=== PATIENT | male | born 1935 | race Caucasian/White ===

== ENCOUNTER 2018-03-21 10:12 | Day surgery (SDC) | payer MEDICARE, OTHER ==
[~2018-03-21] VITALS: Ht 188 cm; Wt 74.0 kg
[2018-03-21 10:54] VITALS: BP 118/70
[2018-03-21] MEDS ORDERED: LACTATED RINGERS 1,000 ML IV SCH (11:00)
[2018-03-21] MEDS ORDERED: THYROXINE PO (11:03)
[2018-03-21] MEDS ORDERED: D3 (11:03)
[2018-03-21] MEDS ORDERED: PANT20TA3 PO (11:03)
[2018-03-21] MEDS ORDERED: ONE A DAY VITAMIN (11:03)
[2018-03-21] MEDS ORDERED: ASPIRIN (11:03)
[2018-03-21] MEDS ORDERED: MAGNESIUM (11:03)
[2018-03-21] MEDS ORDERED: GABAPENTIN PO (11:03)
[2018-03-21 11:26] LABS: BASOPHILS # (AUTO) 0.01 x10^3/uL (0-0.1); BASOPHILS % (AUTO) 0 % (0-1); EOSINOPHILS # (AUTO) 0.18 x10^3/uL (0-0.4); EOSINOPHILS % (AUTO) 2 % (1-7); LYMPHOCYTES # (AUTO) 1.12 x10^3/uL (1-3.4); LYMPHOCYTES % (AUTO) 10 % (22-44); MD NO; MEAN CORPUSCULAR HEMOGLOBIN 28.1 pg (27.5-34.5); MEAN CORPUSCULAR HGB CONC 32.7 g/dL (33.2-36.2); MEAN CORPUSCULAR VOLUME 85.9 fL (81-97); MONOCYTES # (AUTO) 0.31 x10^3/uL (0.2-0.8); MONOCYTES % (AUTO) 3 % (2-9); NEUTROPHILS # (AUTO) 9.91 x10^3/uL (1.8-6.8); NEUTROPHILS % (AUTO) 86 % (42-75); PLATELET COUNT 414 x10^3/uL (130-400); RED BLOOD COUNT 4.03 x10^6/uL (4.38-5.82)
[2018-03-21] MEDS ORDERED: MEGA RED (11:33)
[2018-03-21] MEDS ORDERED: PROPOFOL 10 MG/ML, 20ML ONE (12:41)
== END 2018-03-21 14:25 | disposition home or self-care (01) ==
LOC: OUT 10:12
DX: Z09 Encounter for follow-up examination after completed treatment for conditions other than malignant neoplasm (principal); D12.2 Benign neoplasm of ascending colon; E11.9 Type 2 diabetes mellitus without complications; Z86.010 Personal history of colon polyps; Z87.891 Personal history of nicotine dependence; Z85.850 Personal history of malignant neoplasm of thyroid; Z98.890 Other specified postprocedural states; Z79.899 Other long term (current) drug therapy; Z85.72 Personal history of non-Hodgkin lymphomas
CPT/HCPCS: 36415; 45385; 85025; 88305; 93005; J2704; J7120

== ENCOUNTER → 2018-04-30 | Outpatient (CLI) | payer MEDICARE, OTHER ==
[~2018-04-30] MED LIST: ASPIRIN; D3; GABAPENTIN PO; MAGNESIUM; MEGA RED; OMNIPAQUE 350 MG/ML, 75ML BOTTLE ONE; ONE A DAY VITAMIN; PANT20TA3 PO; THYROXINE PO
[2018-04-30 17:53] LABS: CREATININE 0.94 mg/dL (0.7-1.3)
== END | disposition home or self-care (01) ==
LOC: RAD 17:12
PROVIDERS: ATTEND Nurse Practitioner
DX: J90 Pleural effusion, not elsewhere classified (principal); R59.0 Localized enlarged lymph nodes; R09.02 Hypoxemia
CPT/HCPCS: 36415; 71260; 82565; Q9967

== ENCOUNTER 2018-05-10 14:01 | Inpatient (IN) | payer MEDICARE, OTHER ==
[~2018-05-10] VITALS: Ht 188 cm; Wt 86.5 kg
[~2018-05-10 14:01] MED LIST changes: -OMNIPAQUE 350 MG/ML, 75ML BOTTLE ONE
[2018-05-10] MEDS ORDERED: ASPIRIN 81 MG TABLET CHEW ONE (14:50)
[2018-05-10 14:52] LABS: MEAN CORPUSCULAR HEMOGLOBIN 27.4 pg (27.5-34.5); MEAN CORPUSCULAR HGB CONC 32.1 g/dL (33.2-36.2); MEAN CORPUSCULAR VOLUME 85.3 fL (81-97); MEAN PLATELET VOLUME 6.7 fL (7.4-10.4); PLATELET COUNT 699 x10^3/uL (130-400); RED BLOOD COUNT 3.64 x10^6/uL (4.38-5.82); RED CELL DISTRIBUTION WIDTH 16.7 % (9.4-14.8)
[2018-05-10] MEDS ORDERED: ASPIRIN 81 MG TABLET CHEW PO ONE (15:00)
[2018-05-10 15:03] LABS: ALANINE AMINOTRANSFERASE 60 U/L (12-78); ALBUMIN 2.1 g/dL (3.4-5.0); ANION GAP 10 mmol/L (5-15); CALCIUM 8.4 mg/dL (8.5-10.1); CHLORIDE 102 mmol/L (98-107); CREATININE 0.73 mg/dL (0.7-1.3)
[2018-05-10 15:04] LABS: INTERNATIONAL NORMALIZED RATIO 1.1 (0.93-1.1); PROTHROMBIN TIME 11.3 Seconds (9.6-11.5)
[2018-05-10 15:08] LABS: ALKALINE PHOSPHATASE 267 U/L (45-117); BILIRUBIN,TOTAL 0.4 mg/dL (0.2-1.0); TOTAL PROTEIN 8.3 g/dL (6.4-8.2); TROPONIN I < 0.015 ng/mL (0.000-0.045)
[2018-05-10 15:31] LABS: MD YES
[2018-05-10 15:50] LABS: BAND#(MANUAL) 0.39 x10^3/uL; BANDS%(MANUAL) 2 % (0-7); LYMPH#(MANUAL) 0.78 x10^3/uL (1-3.4); LYMPHS% (MANUAL) 4 % (22-44); MONOS#(MANUAL) 0.59 x10^3/uL (0.3-2.7); MONOS% (MANUAL) 3 % (2-9); SEGS% (MANUAL) 91 % (42-75)
[2018-05-10 15:51] LABS: <PLATELET ESTIMATE> INCREASED; <PLT MORPHOLOGY> NORMAL PLT MORPH; ANISOCYTOSIS 1+; TOXIC GRAN 2+
[2018-05-10] MEDS ORDERED: antibiotic PO (15:54)
[2018-05-10] MEDS ORDERED: SODIUM CHLORIDE 0.9% 1,000ML IVBOLUS ONE ×2 (16:00→16:30)
[2018-05-10] MEDS ORDERED: CEFTRIAXONE PMX 1GM/50ML 50 ML ONE (16:20)
[2018-05-10] MEDS ORDERED: AZITHROMYCIN 500 MG in SODIUM CHLORIDE 0.9% 250 ML IVPB ONE (16:30)
[2018-05-10] MEDS ORDERED: CEFTRIAXONE 1,000 MG in SODIUM CHLORIDE 0.9% 50 ML IVPB ONE (16:30)
[2018-05-10] MEDS ORDERED: OMNIPAQUE 350 MG/ML, 75ML BOTTLE ONE (16:57)
[2018-05-10] MEDS ORDERED: LIDOCAINE/PF 1%, 30ML ONE (17:07)
[2018-05-10] MEDS ORDERED: SODIUM CHLORIDE 0.9% 1,000 ML IV ONE (17:56)
[2018-05-10] MEDS ORDERED: SODIUM CHLORIDE FLUSH 10ML SYR IVF PRN (18:00)
[2018-05-10] MEDS ORDERED: IBUPROFEN 600 MG TABLET PO PRN ×2 (19:00→23:30)
[2018-05-10] MEDS ORDERED: PIPERACILLIN/TAZO 2.25 GM in SODIUM CHLORIDE 0.9% 50 ML IV SCH (19:00)
[2018-05-10] MEDS ORDERED: ACETAMINOPHEN 325 MG TABLET PO PRN (19:00)
[2018-05-10] MEDS ORDERED: hydrALAzine 20 MG/ML, 1ML IVPush PRN (19:00)
[2018-05-10] MEDS ORDERED: DOCUSATE 100 MG CAPSULE PO PRN (19:00)
[2018-05-10] MEDS ORDERED: morphine SULFATE 10 MG/ML, 1ML IVPush PRN (19:00)
[2018-05-10] MEDS ORDERED: POLYETHYLENE GLYCOL 17 GM PACKET PO PRN (19:00)
[2018-05-10] MEDS ORDERED: BISACODYL 10 MG SUPP PR PRN (19:00)
[2018-05-10] MEDS ORDERED: VANCOMYCIN PER PHARMACY MC PRN (19:00)
[2018-05-10] MEDS ORDERED: ENALAPRILAT 1.25 MG/ML, 2ML IVPush PRN (19:00)
[2018-05-10 19:19] LABS: FREE T4 (FREE THYROXINE) 1.06 ng/dL (0.76-1.46); TROPONIN I < 0.015 ng/mL (0.000-0.045)
[2018-05-10] MEDS ORDERED: LEVO88TA4 PO (20:13)
[2018-05-10] MEDS ORDERED: PHARMACOKINETIC MONITORING MC PRN (20:30)
[2018-05-10] MEDS ORDERED: PHARMACOKINETIC CONSULTATION MC ONE (20:30)
[2018-05-10] MEDS: PIPERACILLIN/TAZO/PMX 2.25GM 50 ML IV SCH (21:10)
[2018-05-10] MEDS: HEPARIN 5,000 UNITS/ML, 1ML SQ SCH (21:11)
[2018-05-10 21:22] VITALS: BP 129/74
[2018-05-10] MEDS ORDERED: ALBUTEROL SULFATE 2.5 MG/3 ML ONE ×2 (21:34→21:36)
[2018-05-10] MEDS: ALBUTEROL SULFATE 2.5 MG/3 ML NPPB SCH (21:40)
[2018-05-10] MEDS: VANCOMYCIN 1,300 MG in SODIUM CHLORIDE 0.9% 250 ML IV SCH (22:48)
[2018-05-10] MEDS ORDERED: IBUPROFEN 200 MG TABLET ONE (23:03)
[2018-05-11 02:00] LABS: BASOPHILS # (AUTO) 0.04 x10^3/uL (0-0.1); BASOPHILS % (AUTO) 0 % (0-1); EOSINOPHILS # (AUTO) 0.09 x10^3/uL (0-0.4); EOSINOPHILS % (AUTO) 1 % (1-7); LYMPHOCYTES % (AUTO) 8 % (22-44); MD NO; MEAN CORPUSCULAR HGB CONC 32.4 g/dL (33.2-36.2); MEAN CORPUSCULAR VOLUME 86.3 fL (81-97); MONOCYTES # (AUTO) 0.64 x10^3/uL (0.2-0.8); MONOCYTES % (AUTO) 5 % (2-9); NEUTROPHILS # (AUTO) 10.14 x10^3/uL (1.8-6.8); NEUTROPHILS % (AUTO) 85 % (42-75); PLATELET COUNT 532 x10^3/uL (130-400); RED BLOOD COUNT 2.93 x10^6/uL (4.38-5.82); RED CELL DISTRIBUTION WIDTH 16.2 % (9.4-14.8)
[2018-05-11 02:08] LABS: ALBUMIN 1.5 g/dL (3.4-5.0); ANION GAP 8 mmol/L (5-15); CALCIUM 7.3 mg/dL (8.5-10.1); CHLORIDE 106 mmol/L (98-107)
[2018-05-11 02:12] LABS: ALANINE AMINOTRANSFERASE 41 U/L (12-78); ALKALINE PHOSPHATASE 191 U/L (45-117); BILIRUBIN,TOTAL 0.2 mg/dL (0.2-1.0); CHOL/HDL RATIO 3.4; CHOLESTEROL, TOTAL 61 mg/dL (140-239); CREATININE 0.66 mg/dL (0.7-1.3); HDL CHOL % 30 % (26-37); HDL CHOLESTEROL (DIRECT) 18 mg/dL (40-60); LDL CHOLESTEROL,CALCULATED 32 mg/dL (54-169); LDL/HDL RATIO 1.8 (0.5-3.0); TOTAL PROTEIN 6.1 g/dL (6.4-8.2); TRIGLYCERIDES 53 mg/dL (50-200); VLDL CHOLESTEROL 11 mg/dL (0-25)
[2018-05-11 02:16] LABS: TROPONIN I < 0.015 ng/mL (0.000-0.045)
[2018-05-11 02:24] VITALS: BP 83/45
[2018-05-11] MEDS ORDERED: SODIUM CHLORIDE 0.9%, 500ML IVBOLUS ONE (03:00)
[2018-05-11] MEDS: PIPERACILLIN/TAZO/PMX 2.25GM 50 ML IV SCH ×4 (03:37→21:58)
[2018-05-11 04:00] VITALS: BP 87/40
[2018-05-11] MEDS ORDERED: NOREPINEPHRINE 8 MG in SODIUM CHLORIDE 0.9% 242 ML IV PRN (05:00)
[2018-05-11] MEDS: SODIUM CHLORIDE 0.9% 1,000 ML IV SCH ×3 (05:50→20:23)
[2018-05-11] MEDS: HEPARIN 5,000 UNITS/ML, 1ML SQ SCH ×3 (05:52→21:58)
[2018-05-11] MEDS: ALBUTEROL SULFATE 2.5 MG/3 ML NPPB SCH ×4 (07:30→20:15)
[2018-05-11] MEDS: LEVOTHYROXINE 88 MCG TABLET PO SCH (08:22)
[2018-05-11] MEDS: PANTOPRAZOLE 20MG TABLET PO SCH (08:22)
[2018-05-11] MEDS: HYDROCORTISONE 100 MG INJ. IVPush SCH ×2 (11:30→20:22)
[2018-05-11] MEDS: VANCOMYCIN 1,300 MG in SODIUM CHLORIDE 0.9% 250 ML IV SCH (20:22)
[2018-05-12 04:22] LABS: MEAN CORPUSCULAR HEMOGLOBIN 27.9 pg (27.5-34.5); MEAN CORPUSCULAR HGB CONC 32.4 g/dL (33.2-36.2); MEAN CORPUSCULAR VOLUME 86.2 fL (81-97); MEAN PLATELET VOLUME 6.5 fL (7.4-10.4); PLATELET COUNT 637 x10^3/uL (130-400); RED BLOOD COUNT 3.13 x10^6/uL (4.38-5.82); RED CELL DISTRIBUTION WIDTH 16.6 % (9.4-14.8)
[2018-05-12 04:32] LABS: ALANINE AMINOTRANSFERASE 39 U/L (12-78); ALBUMIN 1.7 g/dL (3.4-5.0); ANION GAP 6 mmol/L (5-15); CALCIUM 7.3 mg/dL (8.5-10.1); CHLORIDE 110 mmol/L (98-107); CREATININE 0.51 mg/dL (0.7-1.3)
[2018-05-12 04:35] LABS: ALKALINE PHOSPHATASE 181 U/L (45-117); BILIRUBIN,TOTAL 0.1 mg/dL (0.2-1.0); TOTAL PROTEIN 6.8 g/dL (6.4-8.2)
[2018-05-12 04:37] LABS: BASOPHILS # (AUTO) 0.02 x10^3/uL (0-0.1); BASOPHILS % (AUTO) 0 % (0-1); EOSINOPHILS % (AUTO) 0 % (1-7); LYMPHOCYTES # (AUTO) 0.52 x10^3/uL (1-3.4); LYMPHOCYTES % (AUTO) 4 % (22-44); MD SCAN; MONOCYTES # (AUTO) 0.14 x10^3/uL (0.2-0.8); MONOCYTES % (AUTO) 1 % (2-9); NEUTROPHILS # (AUTO) 13.47 x10^3/uL (1.8-6.8); NEUTROPHILS % (AUTO) 95 % (42-75)
[2018-05-12] MEDS: PIPERACILLIN/TAZO/PMX 2.25GM 50 ML IV SCH ×4 (05:02→22:25)
[2018-05-12] MEDS: SODIUM CHLORIDE 0.9% 1,000 ML IV SCH ×2 (05:03→14:00)
[2018-05-12] MEDS: LEVOTHYROXINE 88 MCG TABLET PO SCH (06:03)
[2018-05-12] MEDS: HEPARIN 5,000 UNITS/ML, 1ML SQ SCH ×3 (06:05→22:26)
[2018-05-12] MEDS: ALBUTEROL SULFATE 2.5 MG/3 ML NPPB SCH (07:00)
[2018-05-12] MEDS: PANTOPRAZOLE 20MG TABLET PO SCH (08:12)
[2018-05-12] MEDS: HYDROCORTISONE 100 MG INJ. IVPush SCH ×2 (08:12→20:30)
[2018-05-12 09:28] VITALS: BP 110/53
[2018-05-12] MEDS ORDERED: ALBUTEROL SULFATE 2.5 MG/3 ML NPPB PRN (11:00)
[2018-05-12 14:43] VITALS: BP 110/62
[2018-05-12 17:44] VITALS: BP 147/69
[2018-05-12 18:54] VITALS: BP 145/73
[2018-05-12] MEDS: VANCOMYCIN 1,700 MG in SODIUM CHLORIDE 0.9% 250 ML IV SCH (20:30)
[2018-05-13 02:36] VITALS: BP 116/61
[2018-05-13 04:58] LABS: BASOPHILS # (AUTO) 0.01 x10^3/uL (0-0.1); BASOPHILS % (AUTO) 0 % (0-1); EOSINOPHILS % (AUTO) 0 % (1-7); LYMPHOCYTES # (AUTO) 0.87 x10^3/uL (1-3.4); LYMPHOCYTES % (AUTO) 6 % (22-44); MD NO; MEAN CORPUSCULAR HEMOGLOBIN 28.4 pg (27.5-34.5); MEAN CORPUSCULAR HGB CONC 32.8 g/dL (33.2-36.2); MEAN CORPUSCULAR VOLUME 86.6 fL (81-97); MEAN PLATELET VOLUME 7.1 fL (7.4-10.4); MONOCYTES # (AUTO) 0.29 x10^3/uL (0.2-0.8); MONOCYTES % (AUTO) 2 % (2-9); NEUTROPHILS # (AUTO) 13.73 x10^3/uL (1.8-6.8); NEUTROPHILS % (AUTO) 92 % (42-75); PLATELET COUNT 653 x10^3/uL (130-400); RED BLOOD COUNT 3.24 x10^6/uL (4.38-5.82); RED CELL DISTRIBUTION WIDTH 16.3 % (9.4-14.8)
[2018-05-13 05:11] LABS: ANION GAP 7 mmol/L (5-15); CALCIUM 7.9 mg/dL (8.5-10.1); CHLORIDE 111 mmol/L (98-107); CREATININE 0.49 mg/dL (0.7-1.3)
[2018-05-13] MEDS: LEVOTHYROXINE 88 MCG TABLET PO SCH (05:15)
[2018-05-13] MEDS: HYDROCORTISONE 100 MG INJ. IVPush SCH ×3 (05:15→21:12)
[2018-05-13] MEDS: PIPERACILLIN/TAZO/PMX 2.25GM 50 ML IV SCH ×4 (05:15→23:12)
[2018-05-13] MEDS: HEPARIN 5,000 UNITS/ML, 1ML SQ SCH ×3 (06:31→21:12)
[2018-05-13 07:53] VITALS: BP 118/54
[2018-05-13] MEDS: PANTOPRAZOLE 20MG TABLET PO SCH (08:11)
[2018-05-13 12:57] VITALS: BP 124/71
[2018-05-13] MEDS: VANCOMYCIN 1,700 MG in SODIUM CHLORIDE 0.9% 250 ML IV SCH (18:12)
[2018-05-13 19:50] VITALS: BP 126/77
[2018-05-13] MEDS: SODIUM CHLORIDE 0.9% 1,000 ML IV SCH (23:12)
[2018-05-14] MEDS: HYDROCORTISONE 100 MG INJ. IVPush SCH ×2 (05:09→13:04)
[2018-05-14] MEDS: HEPARIN 5,000 UNITS/ML, 1ML SQ SCH ×3 (05:09→22:06)
[2018-05-14] MEDS: PIPERACILLIN/TAZO/PMX 2.25GM 50 ML IV SCH ×3 (05:09→17:46)
[2018-05-14] MEDS: LEVOTHYROXINE 88 MCG TABLET PO SCH (05:09)
[2018-05-14 05:14] VITALS: BP 117/67
[2018-05-14 06:33] LABS: BASOPHILS # (AUTO) 0.03 x10^3/uL (0-0.1); BASOPHILS % (AUTO) 0 % (0-1); EOSINOPHILS % (AUTO) 0 % (1-7); LYMPHOCYTES # (AUTO) 1.25 x10^3/uL (1-3.4); LYMPHOCYTES % (AUTO) 11 % (22-44); MD NO; MEAN CORPUSCULAR HEMOGLOBIN 28.2 pg (27.5-34.5); MEAN CORPUSCULAR HGB CONC 32.5 g/dL (33.2-36.2); MEAN PLATELET VOLUME 6.8 fL (7.4-10.4); MONOCYTES % (AUTO) 4 % (2-9); NEUTROPHILS # (AUTO) 9.41 x10^3/uL (1.8-6.8); NEUTROPHILS % (AUTO) 85 % (42-75); PLATELET COUNT 608 x10^3/uL (130-400); RED BLOOD COUNT 2.96 x10^6/uL (4.38-5.82); RED CELL DISTRIBUTION WIDTH 16.9 % (9.4-14.8)
[2018-05-14 06:37] LABS: ANION GAP 9 mmol/L (5-15); CALCIUM 7.4 mg/dL (8.5-10.1); CHLORIDE 108 mmol/L (98-107); CREATININE 0.56 mg/dL (0.7-1.3)
[2018-05-14 07:23] VITALS: BP 123/65
[2018-05-14] MEDS: PANTOPRAZOLE 20MG TABLET PO SCH (09:00)
[2018-05-14] MEDS ORDERED: OMNIPAQUE 350 MG/ML, 75ML BOTTLE ONE (09:08)
[2018-05-14] MEDS: SODIUM CHLORIDE 0.9% 1,000 ML IV SCH (13:05)
[2018-05-14 13:32] VITALS: BP 132/70
[2018-05-14] MEDS: VANCOMYCIN 1,700 MG in SODIUM CHLORIDE 0.9% 250 ML IV SCH (18:26)
[2018-05-14 19:39] VITALS: BP 120/67
[2018-05-15] MEDS: PIPERACILLIN/TAZO/PMX 2.25GM 50 ML IV SCH ×3 (00:11→13:31)
[2018-05-15 02:19] VITALS: BP 112/60
[2018-05-15] MEDS: SODIUM CHLORIDE 0.9% 1,000 ML IV SCH (04:18)
[2018-05-15 05:04] LABS: BASOPHILS # (AUTO) 0.01 x10^3/uL (0-0.1); BASOPHILS % (AUTO) 0 % (0-1); EOSINOPHILS # (AUTO) 0.09 x10^3/uL (0-0.4); EOSINOPHILS % (AUTO) 1 % (1-7); LYMPHOCYTES # (AUTO) 1.67 x10^3/uL (1-3.4); LYMPHOCYTES % (AUTO) 19 % (22-44); MD NO; MEAN CORPUSCULAR HEMOGLOBIN 28.1 pg (27.5-34.5); MEAN CORPUSCULAR HGB CONC 32.4 g/dL (33.2-36.2); MEAN CORPUSCULAR VOLUME 86.7 fL (81-97); MONOCYTES # (AUTO) 0.46 x10^3/uL (0.2-0.8); MONOCYTES % (AUTO) 5 % (2-9); NEUTROPHILS # (AUTO) 6.78 x10^3/uL (1.8-6.8); NEUTROPHILS % (AUTO) 75 % (42-75); PLATELET COUNT 647 x10^3/uL (130-400); RED BLOOD COUNT 3.02 x10^6/uL (4.38-5.82); RED CELL DISTRIBUTION WIDTH 16.2 % (9.4-14.8)
[2018-05-15 05:11] LABS: ANION GAP 8 mmol/L (5-15); CALCIUM 7.5 mg/dL (8.5-10.1); CHLORIDE 108 mmol/L (98-107); CREATININE 0.69 mg/dL (0.7-1.3)
[2018-05-15] MEDS: LEVOTHYROXINE 88 MCG TABLET PO SCH (05:50)
[2018-05-15] MEDS: HEPARIN 5,000 UNITS/ML, 1ML SQ SCH ×2 (05:50→14:00)
[2018-05-15 07:41] VITALS: BP 133/66
[2018-05-15] MEDS: PANTOPRAZOLE 20MG TABLET PO SCH (08:02)
[2018-05-15] MEDS ORDERED: PROPOFOL 10 MG/ML, 20ML ONE (09:23)
[2018-05-15] MEDS ORDERED: MIDAZOLAM 1 MG/ML, 2ML IV PRN (10:00)
[2018-05-15] MEDS ORDERED: FENTANYL PF 100 MCG/2ML IV PRN (10:00)
[2018-05-15] MEDS ORDERED: ACETAMINOPHEN 325 MG TABLET PO PRN (10:00)
[2018-05-15] MEDS ORDERED: AMOX600S36 PO (12:43)
[2018-05-15 14:09] VITALS: BP 127/79
== END 2018-05-15 16:00 | disposition home or self-care (01) | DRG 871 ==
LOC: ED 18:04 → EDIP 18:21 → OBSVTOIN 18:42 → 5SO 19:57 → CCU 05-11 05:14 → 3NW 05-12 17:38 → DCLOUNGE 05-15 15:51
PROVIDERS: ADMIT Internal Medicine; ATTEND Internal Medicine
PROC: 0W993ZZ Drainage of Right Pleural Cavity, Percutaneous Approach (ICD-10-PCS; 2018-05-10)
PROC: 0D758ZZ Dilation of Esophagus, Via Natural or Artificial Opening Endoscopic (ICD-10-PCS; principal; 2018-05-15 10:00)
DX: A41.9 Sepsis, unspecified organism (principal); R65.21 Severe sepsis with septic shock; E43 Unspecified severe protein-calorie malnutrition; J15.9 Unspecified bacterial pneumonia; J90 Pleural effusion, not elsewhere classified; J44.0 Chronic obstructive pulmonary disease with (acute) lower respiratory infection; J98.11 Atelectasis; Z85.828 Personal history of other malignant neoplasm of skin; Z85.850 Personal history of malignant neoplasm of thyroid; Z87.891 Personal history of nicotine dependence; Z79.82 Long term (current) use of aspirin; Z79.899 Other long term (current) drug therapy; Z68.24 Body mass index [BMI] 24.0-24.9, adult; D64.9 Anemia, unspecified; E78.5 Hyperlipidemia, unspecified; E89.0 Postprocedural hypothyroidism; J38.00 Paralysis of vocal cords and larynx, unspecified; J98.4 Other disorders of lung; K22.2 Esophageal obstruction; K22.4 Dyskinesia of esophagus; R13.12 Dysphagia, oropharyngeal phase; Z86.010 Personal history of colon polyps; Z87.01 Personal history of pneumonia (recurrent); Z92.3 Personal history of irradiation; Z96.619 Presence of unspecified artificial shoulder joint; Z99.81 Dependence on supplemental oxygen
CPT/HCPCS: 32555; 36415; 71045; 71260; 74230; 80048; 80053; 80061; 80202; 82306; 82533; 83605; 83690; 83735; 84100; 84145; 84439; 84443; 84484; 85025; 85610; 87040; 87070; 87077; 87081; 87186; 87205; 88112; 88305; 93005; 94640; 96361; 96365; 99285; G0378; J0456; J0696; J1644; J2543; J2704; J3370; J3490; J7613; Q9967; J1720; J7030; J7040; J7050

== ENCOUNTER 2018-07-02 10:25 | Day surgery (SDC) | payer MEDICARE, OTHER ==
[~2018-07-02] VITALS: Ht 188 cm; Wt 76.0 kg
[~2018-07-02 10:25] MED LIST changes: +AMOX600S36 PO; +LEVO88TA4 PO; +antibiotic PO
[2018-07-02 10:47] VITALS: BP 159/88
[2018-07-02] MEDS ORDERED: LACTATED RINGERS 1,000 ML IV SCH (10:51)
[2018-07-02] MEDS ORDERED: PROPOFOL 10 MG/ML, 20ML ONE (13:00)
[2018-07-02] MEDS ORDERED: MIDAZOLAM 1 MG/ML, 2ML IV PRN (14:00)
[2018-07-02] MEDS ORDERED: HYDROmorphone 1 MG/ML, 1ML IV PRN (14:00)
[2018-07-02] MEDS ORDERED: FENTANYL PF 100 MCG/2ML IV PRN (14:00)
[2018-07-02] MEDS ORDERED: ONDANSETRON 2MG/ML, 2ML IVPush PRN (14:00)
[2018-07-02] MEDS ORDERED: MEPERIDINE/PF 25MG/0.5ML IVPush PRN (14:00)
[2018-07-02] MEDS ORDERED: LABETALOL 5MG/ML, 20ML IV PRN (14:00)
[2018-07-02] MEDS ORDERED: OXYcodone 5 MG/5 ML ORAL.SOL UDC PO PRN (14:00)
== END 2018-07-02 15:30 | disposition home or self-care (01) ==
LOC: OUT 10:25
DX: Z09 Encounter for follow-up examination after completed treatment for conditions other than malignant neoplasm (principal); D12.2 Benign neoplasm of ascending colon; Z86.010 Personal history of colon polyps; K57.30 Diverticulosis of large intestine without perforation or abscess without bleeding; Z87.01 Personal history of pneumonia (recurrent); Z98.890 Other specified postprocedural states
CPT/HCPCS: 45385; 88305; 93005; J2704; J7120

== ENCOUNTER 2018-08-19 13:37 | Outpatient (CLI) | payer MEDICARE, OTHER ==
[2018-08-19] MEDS ORDERED: GABA300C10 PO (14:38)
[2018-08-19] MEDS ORDERED: ACET-1600 PO (14:38)
[2018-08-19] MEDS ORDERED: MULT-717 PO (14:38)
== END 2018-08-19 23:59 | disposition home or self-care (01) ==
LOC: STAR 13:37
PROVIDERS: ATTEND Surgery
DX: Z02.9 Encounter for administrative examinations, unspecified (principal)

== ENCOUNTER 2018-08-27 06:05 | Inpatient (IN) | payer MEDICARE, OTHER ==
[~2018-08-27] VITALS: Ht 188 cm; Wt 73.8 kg
[~2018-08-27 06:05] MED LIST changes: +ACET-1600 PO; +GABA300C10 PO; +MULT-717 PO
[2018-08-27] MEDS ORDERED: LACTATED RINGERS 1,000 ML IV SCH (06:34)
[2018-08-27 07:07] LABS: BASOPHILS # (AUTO) 0.01 x10^3/uL (0-0.1); BASOPHILS % (AUTO) 0 % (0-1); EOSINOPHILS # (AUTO) 0.44 x10^3/uL (0-0.4); EOSINOPHILS % (AUTO) 8 % (1-7); LYMPHOCYTES # (AUTO) 1.03 x10^3/uL (1-3.4); LYMPHOCYTES % (AUTO) 19 % (22-44); MD NO; MEAN CORPUSCULAR HEMOGLOBIN 26.5 pg (27.5-34.5); MEAN CORPUSCULAR HGB CONC 32.2 g/dL (33.2-36.2); MEAN CORPUSCULAR VOLUME 82.5 fL (81-97); MEAN PLATELET VOLUME 7.6 fL (7.4-10.4); MONOCYTES # (AUTO) 0.33 x10^3/uL (0.2-0.8); MONOCYTES % (AUTO) 6 % (2-9); NEUTROPHILS # (AUTO) 3.66 x10^3/uL (1.8-6.8); NEUTROPHILS % (AUTO) 67 % (42-75); PLATELET COUNT 332 x10^3/uL (130-400); RED BLOOD COUNT 4.51 x10^6/uL (4.38-5.82); RED CELL DISTRIBUTION WIDTH 14.7 % (9.4-14.8)
[2018-08-27] MEDS ORDERED: FENTANYL PF 250 MCG/5ML ONE (07:17)
[2018-08-27] MEDS ORDERED: PROPOFOL 10 MG/ML, 20ML ONE (07:18)
[2018-08-27 07:19] LABS: ALANINE AMINOTRANSFERASE 13 U/L (12-78); ALBUMIN 3.4 g/dL (3.4-5.0); ANION GAP 6 mmol/L (5-15); CALCIUM 9.1 mg/dL (8.5-10.1); CHLORIDE 103 mmol/L (98-107)
[2018-08-27] MEDS ORDERED: DEXAMETHASONE 4 MG/ML, 1ML ONE ×2 (07:20)
[2018-08-27] MEDS ORDERED: ONDANSETRON 2MG/ML, 2ML ONE ×2 (07:20)
[2018-08-27] MEDS ORDERED: ROCURONIUM 10MG/ML,5ML ONE (07:20)
[2018-08-27] MEDS ORDERED: CEFOTETAN PMX 2GM/50ML 50 ML ONE (07:20)
[2018-08-27] MEDS ORDERED: SUCCINYLCHOLINE 20 MG/ML, 10ML ONE (07:20)
[2018-08-27 07:22] LABS: ALKALINE PHOSPHATASE 102 U/L (45-117); BILIRUBIN,TOTAL 0.4 mg/dL (0.2-1.0); CREATININE 0.86 mg/dL (0.7-1.3)
[2018-08-27] MEDS ORDERED: BUPIVACAINE/PF 0.5% ONE (07:22)
[2018-08-27] MEDS ORDERED: GLYCOPYRROLATE 0.2MG/1ML, 5ML ONE (07:42)
[2018-08-27] MEDS ORDERED: KETOROLAC 30 MG/1 ML ONE (07:42)
[2018-08-27] MEDS ORDERED: NEOSTIGMINE 1 MG/ML, 10ML ONE (09:03)
[2018-08-27] MEDS ORDERED: FENTANYL PF 100 MCG/2ML ONE ×2 (09:08→09:41)
[2018-08-27] MEDS: FENTANYL PF 100 MCG/2ML IV PRN ×2 (09:45→10:00)
[2018-08-27] MEDS ORDERED: HYDROmorphone 2 MG/ML, 1ML ONE (09:58)
[2018-08-27] MEDS ORDERED: MIDAZOLAM 1 MG/ML, 2ML IV PRN (10:00)
[2018-08-27] MEDS ORDERED: EPHEDRINE 50 MG/ML, 1ML IVPush PRN (10:00)
[2018-08-27] MEDS ORDERED: PROMETHAZINE 25 MG/ML, 1ML IV PRN (10:00)
[2018-08-27] MEDS ORDERED: hydrALAzine 20 MG/ML, 1ML IV PRN (10:00)
[2018-08-27] MEDS ORDERED: ONDANSETRON 2MG/ML, 2ML IV PRN (10:00)
[2018-08-27] MEDS ORDERED: ACETAMINOPHEN 325 MG TABLET PO PRN (10:00)
[2018-08-27] MEDS ORDERED: MORPHINE SULFATE 4 MG/ML, 1ML IVPush PRN (10:00)
[2018-08-27] MEDS: HYDROmorphone 2 MG/ML, 1ML IVPush PRN ×2 (10:00→10:10)
[2018-08-27] MEDS ORDERED: LABETALOL 5MG/ML, 20ML IV PRN (10:00)
[2018-08-27] MEDS ORDERED: OXYcodone 5 MG/5 ML ORAL.SOL UDC PO PRN (10:00)
[2018-08-27] MEDS ORDERED: MEPERIDINE/PF 25MG/0.5ML IVPush PRN (10:00)
[2018-08-27] MEDS ORDERED: PROMETHAZINE 12.5 MG SUPP PR PRN (10:00)
[2018-08-27] MEDS ORDERED: DIAZEPAM 5 MG/ML, 2ML IVPush PRN (10:00)
[2018-08-27] MEDS ORDERED: HALOPERIDOL 5 MG/ML IV PRN (10:00)
[2018-08-27] MEDS ORDERED: ALBUTEROL SULFATE 2.5 MG/3 ML NPPB PRN (10:00)
[2018-08-27] MEDS ORDERED: ONDANSETRON ODT 8 MG PO PRN (10:00)
[2018-08-27] MEDS ORDERED: LORazepam 1MG TABLET PO PRN (11:00)
[2018-08-27] MEDS ORDERED: DEXAMETHASONE 4 MG/ML, 1ML IVPush PRN (11:00)
[2018-08-27] MEDS ORDERED: LORazepam 2 MG/ML, 1ML IVPush PRN (11:00)
[2018-08-27] MEDS ORDERED: ACETAMINOPHEN 100 ML IV PRN (11:00)
[2018-08-27] MEDS ORDERED: HALOPERIDOL 5 MG/ML IVPush PRN (11:00)
[2018-08-27] MEDS ORDERED: DIPHENHYDRAMINE 50 MG/ML, 1ML IVPush PRN (11:00)
[2018-08-27] MEDS ORDERED: SCOPOLAMINE PATCH, 1.5MG PATCH.TD72 TD PRN (11:00)
[2018-08-27] MEDS: ACETAMINOPHEN 500 MG TABLET PO SCH ×2 (12:23→18:03)
[2018-08-27] MEDS: D5%-0.45NACL+KCL 20MEQ 1,000 ML IV SCH (12:23)
[2018-08-27 13:53] VITALS: BP 137/71
[2018-08-27] MEDS: IBUPROFEN 800 MG TABLET PO SCH ×2 (16:10→21:23)
[2018-08-27 19:14] VITALS: BP 101/38
[2018-08-27] MEDS: GABAPENTIN 300 MG CAPSULE PO SCH (21:23)
[2018-08-28 00:20] VITALS: BP 90/46
[2018-08-28] MEDS: ACETAMINOPHEN 500 MG TABLET PO SCH ×4 (00:31→18:07)
[2018-08-28 00:37] VITALS: BP 112/60
[2018-08-28 03:31] LABS: ANION GAP 5 mmol/L (5-15); CHLORIDE 105 mmol/L (98-107)
[2018-08-28 03:34] LABS: BASOPHILS # (AUTO) 0.02 x10^3/uL (0-0.1); BASOPHILS % (AUTO) 0 % (0-1); EOSINOPHILS # (AUTO) 0.01 x10^3/uL (0-0.4); EOSINOPHILS % (AUTO) 0 % (1-7); LYMPHOCYTES # (AUTO) 0.97 x10^3/uL (1-3.4); LYMPHOCYTES % (AUTO) 11 % (22-44); MD NO; MEAN CORPUSCULAR HEMOGLOBIN 27.3 pg (27.5-34.5); MEAN CORPUSCULAR HGB CONC 33.1 g/dL (33.2-36.2); MEAN CORPUSCULAR VOLUME 82.6 fL (81-97); MEAN PLATELET VOLUME 7.5 fL (7.4-10.4); MONOCYTES # (AUTO) 0.62 x10^3/uL (0.2-0.8); MONOCYTES % (AUTO) 7 % (2-9); NEUTROPHILS # (AUTO) 7.62 x10^3/uL (1.8-6.8); NEUTROPHILS % (AUTO) 83 % (42-75); PLATELET COUNT 293 x10^3/uL (130-400); RED BLOOD COUNT 3.62 x10^6/uL (4.38-5.82)
[2018-08-28 04:15] VITALS: BP 97/52
[2018-08-28] MEDS: LEVOTHYROXINE 88 MCG TABLET PO SCH (05:33)
[2018-08-28] MEDS: PANTOPRAZOLE 20MG TABLET PO SCH (05:33)
[2018-08-28 06:26] VITALS: BP 95/45
[2018-08-28] MEDS ORDERED: ENOXAPARIN 40 MG/0.4 ML SQ SCH (07:00)
[2018-08-28] MEDS: D5%-0.45NACL+KCL 20MEQ 1,000 ML IV SCH (07:18)
[2018-08-28] MEDS ORDERED: IBUPROFEN 800 MG TABLET ONE (08:38)
[2018-08-28] MEDS: GABAPENTIN 300 MG CAPSULE PO SCH ×2 (08:54→21:09)
[2018-08-28 12:40] VITALS: BP 93/55
[2018-08-28 21:26] VITALS: BP 119/69
[2018-08-29] MEDS: D5%-0.45NACL+KCL 20MEQ 1,000 ML IV SCH (00:13)
[2018-08-29 03:21] VITALS: BP 105/58
[2018-08-29 03:39] LABS: BASOPHILS # (AUTO) 0.02 x10^3/uL (0-0.1); BASOPHILS % (AUTO) 0 % (0-1); EOSINOPHILS # (AUTO) 0.27 x10^3/uL (0-0.4); EOSINOPHILS % (AUTO) 3 % (1-7); LYMPHOCYTES # (AUTO) 1.01 x10^3/uL (1-3.4); LYMPHOCYTES % (AUTO) 10 % (22-44); MD NO; MEAN CORPUSCULAR HEMOGLOBIN 26.3 pg (27.5-34.5); MEAN CORPUSCULAR HGB CONC 31.7 g/dL (33.2-36.2); MEAN CORPUSCULAR VOLUME 83.2 fL (81-97); MEAN PLATELET VOLUME 7.7 fL (7.4-10.4); MONOCYTES # (AUTO) 0.36 x10^3/uL (0.2-0.8); MONOCYTES % (AUTO) 4 % (2-9); NEUTROPHILS # (AUTO) 8.56 x10^3/uL (1.8-6.8); NEUTROPHILS % (AUTO) 84 % (42-75); PLATELET COUNT 293 x10^3/uL (130-400); RED BLOOD COUNT 3.79 x10^6/uL (4.38-5.82); RED CELL DISTRIBUTION WIDTH 15.4 % (9.4-14.8)
[2018-08-29 03:42] LABS: ANION GAP 7 mmol/L (5-15); CALCIUM 7.9 mg/dL (8.5-10.1); CHLORIDE 104 mmol/L (98-107); CREATININE 0.61 mg/dL (0.7-1.3)
[2018-08-29] MEDS: OXYcodone IR 5MG TABLET PO PRN (05:23)
[2018-08-29] MEDS: LEVOTHYROXINE 88 MCG TABLET PO SCH (05:24)
[2018-08-29] MEDS: PANTOPRAZOLE 20MG TABLET PO SCH (05:24)
[2018-08-29] MEDS: ACETAMINOPHEN 500 MG TABLET PO SCH ×4 (05:24→18:00)
[2018-08-29] MEDS ORDERED: METOCLOPRAMIDE 5 MG/ML, 2ML IVPush SCH (07:00)
[2018-08-29] MEDS: GABAPENTIN 300 MG CAPSULE PO SCH ×2 (07:53→20:57)
[2018-08-29 08:54] VITALS: BP 82/38
[2018-08-29] MEDS ORDERED: IBUPROFEN 800 MG TABLET PO SCH (09:00)
[2018-08-29] MEDS ORDERED: SODIUM CHLORIDE 0.9% 1,000ML IVBOLUS ONE ×2 (09:30→18:00)
[2018-08-29] MEDS ORDERED: ASPIRIN 325 MG TABLET ONE (09:34)
[2018-08-29] MEDS ORDERED: ASPIRIN 325 MG TABLET PO STA (09:53)
[2018-08-29] MEDS ORDERED: ASPIRIN 325 MG TABLET PO PRN (10:00)
[2018-08-29 10:04] LABS: TROPONIN I < 0.015 ng/mL (0.000-0.045)
[2018-08-29 10:20] LABS: MEAN CORPUSCULAR HEMOGLOBIN 27.9 pg (27.5-34.5); MEAN CORPUSCULAR HGB CONC 33.5 g/dL (33.2-36.2); MEAN CORPUSCULAR VOLUME 83.2 fL (81-97); MEAN PLATELET VOLUME 7.7 fL (7.4-10.4); PLATELET COUNT 286 x10^3/uL (130-400); RED BLOOD COUNT 3.62 x10^6/uL (4.38-5.82); RED CELL DISTRIBUTION WIDTH 14.9 % (9.4-14.8)
[2018-08-29 10:22] LABS: INTERNATIONAL NORMALIZED RATIO 1.08 (0.93-1.1); PROTHROMBIN TIME 11.4 Seconds (9.6-11.5)
[2018-08-29 10:25] LABS: ALANINE AMINOTRANSFERASE 13 U/L (12-78); ALBUMIN 2.6 g/dL (3.4-5.0); ANION GAP 5 mmol/L (5-15); CALCIUM 8.3 mg/dL (8.5-10.1); CHLORIDE 104 mmol/L (98-107)
[2018-08-29 10:30] LABS: ALKALINE PHOSPHATASE 78 U/L (45-117); BILIRUBIN,TOTAL 0.4 mg/dL (0.2-1.0); CREATINE KINASE, TOTAL 94 U/L (39-308); CREATININE 0.83 mg/dL (0.7-1.3); TOTAL PROTEIN 6.7 g/dL (6.4-8.2)
[2018-08-29] MEDS ORDERED: FENTANYL PF 100 MCG/2ML IV ONE (10:30)
[2018-08-29] MEDS ORDERED: NOREPINEPHRINE 4 MG in SODIUM CHLORIDE 0.9% 246 ML IV PRN ×2 (10:30→11:20)
[2018-08-29] MEDS ORDERED: FENTANYL PF 100 MCG/2ML ONE (10:31)
[2018-08-29] MEDS ORDERED: ROCURONIUM 10MG/ML,5ML IVPush ONE (11:00)
[2018-08-29] MEDS ORDERED: ETOMIDATE 20 MG/10 ML IVPush ONE (11:00)
[2018-08-29] MEDS ORDERED: FENTANYL PF 100 MCG/2ML IVPush PRN (11:30)
[2018-08-29] MEDS ORDERED: DEXTROSE 50%, 50ML SYRINGE IVPush PRN (11:30)
[2018-08-29] MEDS ORDERED: LIDOCAINE-MPF 1%, 2ML ENDO PRN (11:30)
[2018-08-29] MEDS ORDERED: DEXTROSE 4 GM TAB.CHEW PO PRN (11:30)
[2018-08-29] MEDS: ALBUTEROL/IPRATROPIUM 2.5MG/0.5MG, 3 ML INLINE SCH ×4 (11:30→22:08)
[2018-08-29] MEDS ORDERED: PHARMACY MAY ADJ FOR RENAL FX MC SCH (11:30)
[2018-08-29] MEDS ORDERED: GLUCAGON 1 MG IM PRN (11:30)
[2018-08-29] MEDS ORDERED: SODIUM CHLORIDE 0.9% 1,000ML IV SCH (11:30)
[2018-08-29] MEDS ORDERED: OMNIPAQUE 350 MG/ML, 100ML BOTTLE ONE (12:16)
[2018-08-29] MEDS ORDERED: VECURONIUM 10 MG IVPush ONE (12:30)
[2018-08-29] MEDS ORDERED: MIDAZOLAM 1 MG/ML, 5ML IVPush ONE (12:45)
[2018-08-29] MEDS ORDERED: ETOMIDATE 20 MG/10 ML ONE (13:00)
[2018-08-29] MEDS ORDERED: ROCURONIUM 10 MG/ML,10ML ONE (13:00)
[2018-08-29] MEDS ORDERED: MIDAZOLAM 1 MG/ML, 5ML ONE (13:00)
[2018-08-29] MEDS ORDERED: PROPOFOL 10 MG/ML, 100ML IV ONE (13:00)
[2018-08-29] MEDS ORDERED: VECURONIUM 10 MG ONE (13:00)
[2018-08-29] MEDS: LINEZOLID PMX 600MG/300ML 300 ML IV SCH (14:17)
[2018-08-29] MEDS: PROPOFOL 100 ML IV PRN ×2 (15:36→21:45)
[2018-08-29] MEDS: PIPERACILLIN/TAZO/PMX 3.375GM 50 ML IV SCH ×2 (15:51→20:56)
[2018-08-29] MEDS: SODIUM CHLORIDE 0.9% 1,000 ML IV SCH (15:52)
[2018-08-29] MEDS: INSULIN LISPRO 100 UNITS/ML, PEN SQ-INSULIN SCH ×2 (16:00→21:00)
[2018-08-29] MEDS: SODIUM BICARBONATE 4.0%, 5ML NPPB SCH ×2 (18:20→19:50)
[2018-08-29 18:37] LABS: TROPONIN I < 0.015 ng/mL (0.000-0.045)
[2018-08-29] MEDS: ACETAMINOPHEN 650 MG/20.3 ML UDC PO SCH (18:37)
[2018-08-29] MEDS ORDERED: KETOROLAC 30 MG/1 ML IVPush ONE (19:00)
[2018-08-29] MEDS: FAMOTIDINE 20 MG/2 ML IV SCH (20:56)
[2018-08-29] MEDS: SODIUM CHLORIDE FLUSH 10ML SYR IVF SCH (20:57)
[2018-08-29] MEDS ORDERED: VASOPRESSIN 100 UNIT in SODIUM CHLORIDE 0.9% 495 ML IV PRN (21:30)
[2018-08-29] MEDS ORDERED: SODIUM CHLORIDE 0.9%, 500ML IVBOLUS ONE (21:30)
[2018-08-29] MEDS ORDERED: ALBUMIN HUMAN 5% 500 ML IV ONE (21:30)
[2018-08-30] MEDS: DOPAMINE/D5W PMX 250 ML IV PRN (00:03)
[2018-08-30] MEDS ORDERED: ATROPINE SYRINGE 0.1 MG/ML, 10ML ONE (00:22)
[2018-08-30] MEDS: SODIUM CHLORIDE 0.9% 1,000 ML IV SCH (00:50)
[2018-08-30 00:58] LABS: ANION GAP 7 mmol/L (5-15); CALCIUM 7.8 mg/dL (8.5-10.1); CHLORIDE 107 mmol/L (98-107); CREATININE 0.65 mg/dL (0.7-1.3)
[2018-08-30] MEDS ORDERED: FENTANYL PF 2,500 MCG in SODIUM CHLORIDE 0.9% 200 ML IV PRN (01:00)
[2018-08-30] MEDS ORDERED: ATROPINE SYRINGE 0.1 MG/ML, 10ML IVPush STA (01:03)
[2018-08-30] MEDS: LINEZOLID PMX 600MG/300ML 300 ML IV SCH ×2 (01:05→12:44)
[2018-08-30 01:25] LABS: TROPONIN I < 0.015 ng/mL (0.000-0.045)
[2018-08-30] MEDS: ACETAMINOPHEN 650 MG/20.3 ML UDC PO SCH ×3 (01:42→12:30)
[2018-08-30] MEDS: SODIUM BICARBONATE 4.0%, 5ML NPPB SCH ×6 (02:00→22:10)
[2018-08-30] MEDS: ALBUTEROL/IPRATROPIUM 2.5MG/0.5MG, 3 ML INLINE SCH ×6 (02:27→22:10)
[2018-08-30] MEDS: PIPERACILLIN/TAZO/PMX 3.375GM 50 ML IV SCH ×4 (03:29→20:30)
[2018-08-30 04:44] LABS: BASOPHILS # (AUTO) 0.01 x10^3/uL (0-0.1); BASOPHILS % (AUTO) 0 % (0-1); EOSINOPHILS # (AUTO) 0.21 x10^3/uL (0-0.4); EOSINOPHILS % (AUTO) 2 % (1-7); LYMPHOCYTES # (AUTO) 0.79 x10^3/uL (1-3.4); LYMPHOCYTES % (AUTO) 6 % (22-44); MD NO; MEAN CORPUSCULAR HEMOGLOBIN 27.8 pg (27.5-34.5); MEAN CORPUSCULAR HGB CONC 33.5 g/dL (33.2-36.2); MEAN CORPUSCULAR VOLUME 82.8 fL (81-97); MEAN PLATELET VOLUME 7.8 fL (7.4-10.4); MONOCYTES # (AUTO) 0.32 x10^3/uL (0.2-0.8); MONOCYTES % (AUTO) 2 % (2-9); NEUTROPHILS # (AUTO) 12.59 x10^3/uL (1.8-6.8); NEUTROPHILS % (AUTO) 91 % (42-75); PLATELET COUNT 251 x10^3/uL (130-400); RED BLOOD COUNT 3.36 x10^6/uL (4.38-5.82)
[2018-08-30 05:15] LABS: ANION GAP 8 mmol/L (5-15); CALCIUM 7.6 mg/dL (8.5-10.1); CHLORIDE 105 mmol/L (98-107); CREATININE 0.54 mg/dL (0.7-1.3)
[2018-08-30] MEDS ORDERED: PANTOPRAZOLE 40 MG IV ONE (05:46)
[2018-08-30] MEDS: LEVOTHYROXINE 88 MCG TABLET PO SCH (05:53)
[2018-08-30] MEDS: PANTOPRAZOLE 40 MG IV IVPush SCH (05:53)
[2018-08-30] MEDS ORDERED: POTASSIUM CHLORIDE 40 MEQ in SODIUM CHLORIDE 0.9% 100 ML IV ONE (09:00)
[2018-08-30] MEDS ORDERED: ATROPINE SYRINGE 0.1 MG/ML, 10ML IVPush PRN (09:00)
[2018-08-30] MEDS: INSULIN LISPRO 100 UNITS/ML, PEN SQ-INSULIN SCH ×3 (09:00→21:00)
[2018-08-30] MEDS ORDERED: MAGNESIUM SULFATE IN WATER 50 ML IVPB ONE (09:00)
[2018-08-30] MEDS ORDERED: MAGNESIUM SULFATE PMX 4GM/100M 100 ML IVPB ONE (09:07)
[2018-08-30] MEDS: GABAPENTIN 300 MG CAPSULE PO SCH ×2 (09:17→20:30)
[2018-08-30] MEDS: FAMOTIDINE 20 MG/2 ML IV SCH (09:17)
[2018-08-30] MEDS: SODIUM CHLORIDE FLUSH 10ML SYR IVF SCH ×2 (09:18→20:30)
[2018-08-30] MEDS: HEPARIN 5,000 UNITS/ML, 1ML SQ SCH ×2 (15:39→21:56)
[2018-08-30] MEDS: ACETAMINOPHEN 325 MG TABLET PO PRN (20:27)
[2018-08-31] MEDS: SODIUM CHLORIDE 0.9% 1,000 ML IV SCH ×2 (01:01→14:12)
[2018-08-31] MEDS: LINEZOLID PMX 600MG/300ML 300 ML IV SCH ×2 (01:01→12:37)
[2018-08-31] MEDS: DOPAMINE/D5W PMX 250 ML IV PRN (02:04)
[2018-08-31] MEDS: SODIUM BICARBONATE 4.0%, 5ML NPPB SCH ×4 (02:20→14:00)
[2018-08-31] MEDS: ALBUTEROL/IPRATROPIUM 2.5MG/0.5MG, 3 ML INLINE SCH ×6 (02:27→22:36)
[2018-08-31] MEDS: INSULIN LISPRO 100 UNITS/ML, PEN SQ-INSULIN SCH ×4 (03:00→21:00)
[2018-08-31] MEDS: PIPERACILLIN/TAZO/PMX 3.375GM 50 ML IV SCH ×4 (03:04→21:59)
[2018-08-31 03:30] LABS: ANION GAP 7 mmol/L (5-15); CALCIUM 7.2 mg/dL (8.5-10.1); CHLORIDE 102 mmol/L (98-107); CREATININE 0.46 mg/dL (0.7-1.3)
[2018-08-31 03:31] LABS: BASOPHILS # (AUTO) 0.02 x10^3/uL (0-0.1); BASOPHILS % (AUTO) 0 % (0-1); EOSINOPHILS # (AUTO) 0.39 x10^3/uL (0-0.4); EOSINOPHILS % (AUTO) 4 % (1-7); LYMPHOCYTES # (AUTO) 1.27 x10^3/uL (1-3.4); LYMPHOCYTES % (AUTO) 13 % (22-44); MD NO; MEAN CORPUSCULAR HEMOGLOBIN 27.8 pg (27.5-34.5); MEAN CORPUSCULAR HGB CONC 33.7 g/dL (33.2-36.2); MEAN CORPUSCULAR VOLUME 82.5 fL (81-97); MEAN PLATELET VOLUME 7.4 fL (7.4-10.4); MONOCYTES # (AUTO) 0.35 x10^3/uL (0.2-0.8); MONOCYTES % (AUTO) 4 % (2-9); NEUTROPHILS # (AUTO) 7.79 x10^3/uL (1.8-6.8); NEUTROPHILS % (AUTO) 79 % (42-75); PLATELET COUNT 227 x10^3/uL (130-400); RED BLOOD COUNT 2.98 x10^6/uL (4.38-5.82); RED CELL DISTRIBUTION WIDTH 14.8 % (9.4-14.8)
[2018-08-31] MEDS: LEVOTHYROXINE 88 MCG TABLET PO SCH (06:04)
[2018-08-31] MEDS: HEPARIN 5,000 UNITS/ML, 1ML SQ SCH ×3 (06:04→21:59)
[2018-08-31] MEDS: PANTOPRAZOLE 40 MG IV IVPush SCH (06:04)
[2018-08-31] MEDS ORDERED: VECURONIUM 10 MG ONE (08:56)
[2018-08-31] MEDS ORDERED: MIDAZOLAM 1 MG/ML, 5ML ONE (08:56)
[2018-08-31] MEDS ORDERED: MIDAZOLAM 1 MG/ML, 5ML IVPush ONE (09:00)
[2018-08-31] MEDS ORDERED: VECURONIUM 10 MG IVPush ONE (09:00)
[2018-08-31] MEDS: GABAPENTIN 300 MG CAPSULE PO SCH ×2 (09:11→21:59)
[2018-08-31] MEDS: SODIUM CHLORIDE FLUSH 10ML SYR IVF SCH ×2 (10:16→22:00)
[2018-08-31] MEDS ORDERED: ACETYLCYSTEINE 20%, 4ML NPPB SCH (11:00)
[2018-08-31] MEDS: ACETYLCYSTEINE 20%, 30ML NPPB SCH ×4 (11:00→22:36)
[2018-09-01] MEDS: LINEZOLID PMX 600MG/300ML 300 ML IV SCH ×2 (00:20→14:17)
[2018-09-01] MEDS: ACETYLCYSTEINE 20%, 30ML NPPB SCH ×4 (03:00→15:00)
[2018-09-01] MEDS: ALBUTEROL/IPRATROPIUM 2.5MG/0.5MG, 3 ML INLINE SCH ×6 (03:30→23:12)
[2018-09-01] MEDS: PIPERACILLIN/TAZO/PMX 3.375GM 50 ML IV SCH ×4 (03:42→20:48)
[2018-09-01 05:41] LABS: MEAN CORPUSCULAR HGB CONC 32.6 g/dL (33.2-36.2); MEAN CORPUSCULAR VOLUME 82.8 fL (81-97); MEAN PLATELET VOLUME 7.6 fL (7.4-10.4); PLATELET COUNT 230 x10^3/uL (130-400); RED BLOOD COUNT 2.68 x10^6/uL (4.38-5.82)
[2018-09-01 05:55] LABS: ANION GAP 6 mmol/L (5-15); CALCIUM 8.1 mg/dL (8.5-10.1); CHLORIDE 100 mmol/L (98-107); CREATININE 0.46 mg/dL (0.7-1.3); TRIGLYCERIDES 84 mg/dL (50-200)
[2018-09-01] MEDS: HEPARIN 5,000 UNITS/ML, 1ML SQ SCH (05:59)
[2018-09-01] MEDS: LEVOTHYROXINE 88 MCG TABLET PO SCH (05:59)
[2018-09-01] MEDS: PANTOPRAZOLE 40 MG IV IVPush SCH (06:01)
[2018-09-01 06:02] LABS: BASOPHILS % (AUTO) 0 % (0-1); EOSINOPHILS # (AUTO) 0.56 x10^3/uL (0-0.4); EOSINOPHILS % (AUTO) 8 % (1-7); LYMPHOCYTES # (AUTO) 0.66 x10^3/uL (1-3.4); LYMPHOCYTES % (AUTO) 10 % (22-44); MD SCAN; MONOCYTES # (AUTO) 0.38 x10^3/uL (0.2-0.8); MONOCYTES % (AUTO) 6 % (2-9); NEUTROPHILS % (AUTO) 76 % (42-75)
[2018-09-01] MEDS: INSULIN LISPRO 100 UNITS/ML, PEN SQ-INSULIN SCH ×2 (06:02→09:00)
[2018-09-01] MEDS: GABAPENTIN 300 MG CAPSULE PO SCH ×2 (09:28→19:53)
[2018-09-01] MEDS: SODIUM CHLORIDE 0.9% 1,000 ML IV SCH (09:28)
[2018-09-01] MEDS: SODIUM CHLORIDE FLUSH 10ML SYR IVF SCH ×2 (09:29→20:48)
--- NOTE | 2018-09-01 11:48 | NUR ---
TF GOAL: PROMOTE @ 85ML/HR
--- NOTE | 2018-09-01 15:11 | NUR ---
[employer] recommend: NPO at this time with single ice chips - UP at 90 degrees orange sheet posted Addendum: 09/01/18 at [address] Amended: Links added.
[2018-09-02] MEDS: LINEZOLID PMX 600MG/300ML 300 ML IV SCH (00:22)
[2018-09-02] MEDS: PIPERACILLIN/TAZO/PMX 3.375GM 50 ML IV SCH (03:12)
[2018-09-02] MEDS: ALBUTEROL/IPRATROPIUM 2.5MG/0.5MG, 3 ML INLINE SCH ×2 (03:17→07:10)
[2018-09-02 03:35] LABS: ANION GAP 8 mmol/L (5-15); CALCIUM 7.8 mg/dL (8.5-10.1); CHLORIDE 110 mmol/L (98-107)
[2018-09-02 03:41] LABS: MEAN CORPUSCULAR HEMOGLOBIN 26.6 pg (27.5-34.5); MEAN CORPUSCULAR HGB CONC 32.3 g/dL (33.2-36.2); MEAN CORPUSCULAR VOLUME 82.3 fL (81-97); MEAN PLATELET VOLUME 7.3 fL (7.4-10.4); PLATELET COUNT 233 x10^3/uL (130-400); RED BLOOD COUNT 2.74 x10^6/uL (4.38-5.82); RED CELL DISTRIBUTION WIDTH 14.8 % (9.4-14.8)
[2018-09-02 04:20] LABS: BASOPHILS # (AUTO) 0.01 x10^3/uL (0-0.1); BASOPHILS % (AUTO) 0 % (0-1); EOSINOPHILS # (AUTO) 0.43 x10^3/uL (0-0.4); EOSINOPHILS % (AUTO) 9 % (1-7); LYMPHOCYTES % (AUTO) 10 % (22-44); MD SCAN; MONOCYTES # (AUTO) 0.34 x10^3/uL (0.2-0.8); MONOCYTES % (AUTO) 7 % (2-9); NEUTROPHILS % (AUTO) 75 % (42-75)
[2018-09-02] MEDS: PANTOPRAZOLE 40 MG IV IVPush SCH (04:56)
[2018-09-02] MEDS: SODIUM CHLORIDE 0.9% 1,000 ML IV SCH ×2 (04:57→20:09)
[2018-09-02] MEDS ORDERED: ALBUTEROL/IPRATROPIUM 2.5MG/0.5MG, 3 ML NPPB PRN (07:30)
[2018-09-02] MEDS: LEVOTHYROXINE 88 MCG TABLET PO SCH (09:00)
[2018-09-02] MEDS: GABAPENTIN 300 MG CAPSULE PO SCH ×2 (09:00→22:46)
[2018-09-02] MEDS: SODIUM CHLORIDE FLUSH 10ML SYR IVF SCH ×2 (09:55→21:00)
[2018-09-02] MEDS: CEFTRIAXONE PMX 2GM/50ML 50 ML IVPB SCH (11:25)
[2018-09-02 13:55] VITALS: BP 145/73
[2018-09-02 15:32] VITALS: BP 131/64
[2018-09-02 19:42] VITALS: BP 118/66
[2018-09-02 21:54] VITALS: BP 123/66
[2018-09-03 01:31] VITALS: BP 128/66
[2018-09-03] MEDS: PANTOPRAZOLE 40 MG IV IVPush SCH (06:30)
[2018-09-03] MEDS: LEVOTHYROXINE 88 MCG TABLET PO SCH (06:34)
[2018-09-03 06:58] VITALS: BP 125/65
[2018-09-03] MEDS: GABAPENTIN 300 MG CAPSULE PO SCH ×2 (08:55→21:22)
[2018-09-03] MEDS: SODIUM CHLORIDE FLUSH 10ML SYR IVF SCH ×2 (08:55→21:22)
[2018-09-03] MEDS: SODIUM CHLORIDE 0.9% 1,000 ML IV SCH ×2 (08:56→21:22)
[2018-09-03] MEDS: CEFTRIAXONE PMX 2GM/50ML 50 ML IVPB SCH (11:01)
[2018-09-03 14:00] VITALS: BP 123/58
[2018-09-03 19:00] VITALS: BP 151/73
[2018-09-04 01:25] VITALS: BP 115/51
[2018-09-04] MEDS: LEVOTHYROXINE 88 MCG TABLET PO SCH (06:34)
[2018-09-04] MEDS: PANTOPRAZOLE 40 MG IV IVPush SCH (06:34)
[2018-09-04] MEDS: GABAPENTIN 300 MG CAPSULE PO SCH (09:00)
[2018-09-04 09:12] VITALS: BP 151/65
[2018-09-04] MEDS: SODIUM CHLORIDE 0.9% 1,000 ML IV SCH (11:01)
[2018-09-04] MEDS: CEFTRIAXONE PMX 2GM/50ML 50 ML IVPB SCH (14:18)
[2018-09-04] MEDS: SODIUM CHLORIDE FLUSH 10ML SYR IVF SCH ×2 (14:20→21:00)
[2018-09-04 14:51] VITALS: BP 147/74
[2018-09-04] MEDS: ACETAMINOPHEN 325 MG TABLET PO PRN (16:27)
[2018-09-04] MEDS: GABAPENTIN 250 MG/5 ML ORAL SOL PO SCH (21:00)
[2018-09-04 21:51] VITALS: BP 117/57
[2018-09-05 00:30] VITALS: BP 115/65
[2018-09-05] MEDS: SODIUM CHLORIDE 0.9% 1,000 ML IV SCH ×2 (01:21→14:22)
[2018-09-05] MEDS: PANTOPRAZOLE 40 MG IV IVPush SCH (05:44)
[2018-09-05] MEDS: LEVOTHYROXINE 88 MCG TABLET PO SCH (05:45)
[2018-09-05 06:11] LABS: ANION GAP 7 mmol/L (5-15); CALCIUM 8.6 mg/dL (8.5-10.1); CHLORIDE 105 mmol/L (98-107); CREATININE 0.56 mg/dL (0.7-1.3)
[2018-09-05 06:40] LABS: MEAN CORPUSCULAR HEMOGLOBIN 26.9 pg (27.5-34.5); MEAN CORPUSCULAR HGB CONC 32.2 g/dL (33.2-36.2); MEAN CORPUSCULAR VOLUME 83.7 fL (81-97); MEAN PLATELET VOLUME 7.2 fL (7.4-10.4); PLATELET COUNT 510 x10^3/uL (130-400); RED BLOOD COUNT 3.64 x10^6/uL (4.38-5.82); RED CELL DISTRIBUTION WIDTH 15.1 % (9.4-14.8)
[2018-09-05 06:42] LABS: BASOPHILS # (AUTO) 0.05 x10^3/uL (0-0.1); BASOPHILS % (AUTO) 1 % (0-1); EOSINOPHILS # (AUTO) 1.04 x10^3/uL (0-0.4); EOSINOPHILS % (AUTO) 11 % (1-7); LYMPHOCYTES # (AUTO) 2.16 x10^3/uL (1-3.4); LYMPHOCYTES % (AUTO) 22 % (22-44); MD SCAN; MONOCYTES # (AUTO) 0.61 x10^3/uL (0.2-0.8); MONOCYTES % (AUTO) 6 % (2-9); NEUTROPHILS # (AUTO) 5.84 x10^3/uL (1.8-6.8); NEUTROPHILS % (AUTO) 60 % (42-75)
[2018-09-05 08:23] VITALS: BP 110/64
[2018-09-05] MEDS: SODIUM CHLORIDE FLUSH 10ML SYR IVF SCH ×2 (08:36→20:07)
[2018-09-05] MEDS: GABAPENTIN 250 MG/5 ML ORAL SOL PO SCH ×2 (08:36→20:10)
[2018-09-05] MEDS: CEFTRIAXONE PMX 2GM/50ML 50 ML IVPB SCH (11:34)
[2018-09-05 14:01] VITALS: BP 97/56
[2018-09-05] MEDS: AMPICILLIN/SULBACTAM 3 GM in SODIUM CHLORIDE 0.9% 100 ML IV SCH ×2 (14:22→20:07)
[2018-09-05 19:55] VITALS: BP 119/69
[2018-09-06 01:14] VITALS: BP 126/69
[2018-09-06] MEDS: AMPICILLIN/SULBACTAM 3 GM in SODIUM CHLORIDE 0.9% 100 ML IV SCH ×4 (02:26→20:28)
[2018-09-06] MEDS: SODIUM CHLORIDE 0.9% 1,000 ML IV SCH ×2 (03:52→17:36)
[2018-09-06] MEDS: PANTOPRAZOLE 40 MG IV IVPush SCH (05:27)
[2018-09-06] MEDS: LEVOTHYROXINE 88 MCG TABLET PO SCH (05:28)
[2018-09-06 06:06] LABS: BASOPHILS # (AUTO) 0.04 x10^3/uL (0-0.1); BASOPHILS % (AUTO) 1 % (0-1); EOSINOPHILS # (AUTO) 0.84 x10^3/uL (0-0.4); EOSINOPHILS % (AUTO) 14 % (1-7); LYMPHOCYTES # (AUTO) 0.99 x10^3/uL (1-3.4); LYMPHOCYTES % (AUTO) 17 % (22-44); MD NO; MEAN CORPUSCULAR HEMOGLOBIN 27.4 pg (27.5-34.5); MEAN CORPUSCULAR HGB CONC 32.9 g/dL (33.2-36.2); MEAN CORPUSCULAR VOLUME 83.2 fL (81-97); MEAN PLATELET VOLUME 6.5 fL (7.4-10.4); MONOCYTES # (AUTO) 0.53 x10^3/uL (0.2-0.8); MONOCYTES % (AUTO) 9 % (2-9); NEUTROPHILS # (AUTO) 3.44 x10^3/uL (1.8-6.8); NEUTROPHILS % (AUTO) 59 % (42-75); PLATELET COUNT 383 x10^3/uL (130-400); RED CELL DISTRIBUTION WIDTH 14.7 % (9.4-14.8)
[2018-09-06 06:08] LABS: CHLORIDE 107 mmol/L (98-107)
[2018-09-06 06:16] LABS: ANION GAP 9 mmol/L (5-15); CREATININE 0.46 mg/dL (0.7-1.3)
[2018-09-06 06:48] VITALS: BP 122/72
[2018-09-06] MEDS: SODIUM CHLORIDE FLUSH 10ML SYR IVF SCH ×2 (09:00→20:28)
[2018-09-06] MEDS: GABAPENTIN 250 MG/5 ML ORAL SOL PO SCH ×2 (09:00→21:41)
[2018-09-06 15:19] VITALS: BP 112/61
[2018-09-06 19:05] VITALS: BP 126/61
[2018-09-07 00:38] VITALS: BP 111/63
[2018-09-07] MEDS: AMPICILLIN/SULBACTAM 3 GM in SODIUM CHLORIDE 0.9% 100 ML IV SCH ×4 (02:43→23:58)
[2018-09-07 05:39] LABS: ANION GAP 5 mmol/L (5-15); CALCIUM 8.5 mg/dL (8.5-10.1); CHLORIDE 107 mmol/L (98-107)
[2018-09-07 05:41] LABS: CREATININE 0.52 mg/dL (0.7-1.3)
[2018-09-07 05:42] LABS: BASOPHILS # (AUTO) 0.05 x10^3/uL (0-0.1); BASOPHILS % (AUTO) 1 % (0-1); EOSINOPHILS % (AUTO) 14 % (1-7); LYMPHOCYTES # (AUTO) 1.12 x10^3/uL (1-3.4); LYMPHOCYTES % (AUTO) 19 % (22-44); MD NO; MEAN CORPUSCULAR HEMOGLOBIN 26.9 pg (27.5-34.5); MEAN CORPUSCULAR HGB CONC 32.4 g/dL (33.2-36.2); MEAN PLATELET VOLUME 6.6 fL (7.4-10.4); MONOCYTES # (AUTO) 0.61 x10^3/uL (0.2-0.8); MONOCYTES % (AUTO) 10 % (2-9); NEUTROPHILS # (AUTO) 3.36 x10^3/uL (1.8-6.8); NEUTROPHILS % (AUTO) 57 % (42-75); PLATELET COUNT 472 x10^3/uL (130-400)
[2018-09-07] MEDS: LEVOTHYROXINE 88 MCG TABLET PO SCH (06:00)
[2018-09-07] MEDS: PANTOPRAZOLE 40 MG IV IVPush SCH (06:18)
[2018-09-07 08:10] VITALS: BP 117/61
[2018-09-07] MEDS ORDERED: PROPOFOL 10 MG/ML, 20ML ONE (08:56)
[2018-09-07] MEDS ORDERED: ONDANSETRON ODT 8 MG PO PRN (09:00)
[2018-09-07] MEDS ORDERED: ONDANSETRON 2MG/ML, 2ML IV PRN (09:00)
[2018-09-07] MEDS ORDERED: LABETALOL 5MG/ML, 20ML IV PRN (09:00)
[2018-09-07] MEDS ORDERED: PROMETHAZINE 25 MG SUPP PR PRN (09:00)
[2018-09-07] MEDS ORDERED: ALBUTEROL SULFATE 2.5 MG/3 ML NPPB PRN (09:00)
[2018-09-07] MEDS ORDERED: MORPHINE SULFATE 4 MG/ML, 1ML IVPush PRN (09:00)
[2018-09-07] MEDS ORDERED: OXYcodone 5 MG/5 ML ORAL.SOL UDC PO PRN (09:00)
[2018-09-07] MEDS ORDERED: MEPERIDINE/PF 25MG/0.5ML IVPush PRN (09:00)
[2018-09-07] MEDS ORDERED: HYDROmorphone 2 MG/ML, 1ML IVPush PRN (09:00)
[2018-09-07] MEDS ORDERED: ALBUTEROL/IPRATROPIUM 2.5MG/0.5MG, 3 ML NPPB PRN (09:00)
[2018-09-07] MEDS ORDERED: PROMETHAZINE 25 MG/ML, 1ML IM PRN ×2 (09:00)
[2018-09-07] MEDS ORDERED: PROMETHAZINE 12.5 MG SUPP PR PRN (09:00)
[2018-09-07] MEDS ORDERED: PROMETHAZINE 25 MG/ML, 1ML IV PRN (09:00)
[2018-09-07] MEDS ORDERED: FENTANYL PF 100 MCG/2ML IV PRN (09:00)
[2018-09-07] MEDS ORDERED: hydrALAzine 20 MG/ML, 1ML IV PRN (09:00)
[2018-09-07] MEDS: SODIUM CHLORIDE 0.9% 1,000 ML IV SCH ×2 (12:07→23:58)
[2018-09-07] MEDS: SODIUM CHLORIDE FLUSH 10ML SYR IVF SCH ×2 (12:07→21:00)
[2018-09-07] MEDS: GABAPENTIN 250 MG/5 ML ORAL SOL PO SCH ×2 (12:07→21:36)
[2018-09-07 13:45] VITALS: BP 137/64
[2018-09-07] MEDS ORDERED: GABAPENTIN 300 MG CAPSULE ONE (21:00)
[2018-09-07] MEDS: OXYcodone IR 5MG TABLET PO PRN (21:05)
[2018-09-07 21:40] VITALS: BP 82/47
[2018-09-08 00:30] VITALS: BP 89/48
[2018-09-08 04:11] VITALS: BP 92/45
[2018-09-08] MEDS: AMPICILLIN/SULBACTAM 3 GM in SODIUM CHLORIDE 0.9% 100 ML IV SCH ×3 (05:39→18:13)
[2018-09-08] MEDS: PANTOPRAZOLE 40 MG IV IVPush SCH (05:39)
[2018-09-08] MEDS: LEVOTHYROXINE 88 MCG TABLET PO SCH (05:39)
[2018-09-08] MEDS: ACETAMINOPHEN 325 MG TABLET PO PRN (05:40)
[2018-09-08 05:50] LABS: BASOPHILS # (AUTO) 0.04 x10^3/uL (0-0.1); BASOPHILS % (AUTO) 1 % (0-1); EOSINOPHILS # (AUTO) 0.72 x10^3/uL (0-0.4); EOSINOPHILS % (AUTO) 12 % (1-7); LYMPHOCYTES # (AUTO) 0.76 x10^3/uL (1-3.4); LYMPHOCYTES % (AUTO) 12 % (22-44); MD NO; MEAN CORPUSCULAR HEMOGLOBIN 26.8 pg (27.5-34.5); MEAN CORPUSCULAR VOLUME 83.7 fL (81-97); MEAN PLATELET VOLUME 7.1 fL (7.4-10.4); MONOCYTES # (AUTO) 0.67 x10^3/uL (0.2-0.8); MONOCYTES % (AUTO) 11 % (2-9); NEUTROPHILS # (AUTO) 4.04 x10^3/uL (1.8-6.8); NEUTROPHILS % (AUTO) 65 % (42-75); PLATELET COUNT 389 x10^3/uL (130-400); RED BLOOD COUNT 2.79 x10^6/uL (4.38-5.82); RED CELL DISTRIBUTION WIDTH 15.6 % (9.4-14.8)
[2018-09-08 05:55] LABS: ANION GAP 7 mmol/L (5-15); CALCIUM 7.6 mg/dL (8.5-10.1); CHLORIDE 105 mmol/L (98-107)
[2018-09-08 05:56] LABS: CREATININE 0.61 mg/dL (0.7-1.3)
[2018-09-08 06:37] VITALS: BP 97/56
[2018-09-08] MEDS: GABAPENTIN 250 MG/5 ML ORAL SOL PO SCH ×2 (08:32→21:59)
[2018-09-08] MEDS: SODIUM CHLORIDE FLUSH 10ML SYR IVF SCH ×2 (08:32→21:00)
[2018-09-08 09:32] LABS: ANION GAP 5 mmol/L (5-15); CALCIUM 8.1 mg/dL (8.5-10.1); CHLORIDE 107 mmol/L (98-107); CREATININE 0.61 mg/dL (0.7-1.3)
[2018-09-08 13:03] VITALS: BP 106/59
[2018-09-08] MEDS: OXYcodone IR 5MG TABLET PO PRN ×2 (16:59→21:59)
[2018-09-08 21:17] VITALS: BP 113/62
[2018-09-08] MEDS: SODIUM CHLORIDE 0.9% 1,000 ML IV SCH (21:59)
[2018-09-09] VITALS (11 sets, daily range): BP systolic 93–125; BP diastolic 50–72
[2018-09-09] MEDS: AMPICILLIN/SULBACTAM 3 GM in SODIUM CHLORIDE 0.9% 100 ML IV SCH ×2 (00:29→06:45)
[2018-09-09] MEDS: OXYcodone IR 5MG TABLET PO PRN ×2 (00:34→04:49)
[2018-09-09 05:01] LABS: MEAN CORPUSCULAR HGB CONC 33.2 g/dL (33.2-36.2); MEAN CORPUSCULAR VOLUME 84.1 fL (81-97); MEAN PLATELET VOLUME 6.7 fL (7.4-10.4); PLATELET COUNT 367 x10^3/uL (130-400); RED CELL DISTRIBUTION WIDTH 15.4 % (9.4-14.8)
[2018-09-09 05:10] LABS: ANION GAP 5 mmol/L (5-15); CALCIUM 7.4 mg/dL (8.5-10.1); CHLORIDE 106 mmol/L (98-107); CREATININE 0.48 mg/dL (0.7-1.3)
[2018-09-09 05:45] LABS: BASOPHILS # (AUTO) 0.03 x10^3/uL (0-0.1); BASOPHILS % (AUTO) 0 % (0-1); EOSINOPHILS # (AUTO) 0.69 x10^3/uL (0-0.4); EOSINOPHILS % (AUTO) 6 % (1-7); LYMPHOCYTES # (AUTO) 1.07 x10^3/uL (1-3.4); LYMPHOCYTES % (AUTO) 10 % (22-44); MD SCAN; MONOCYTES # (AUTO) 0.82 x10^3/uL (0.2-0.8); MONOCYTES % (AUTO) 8 % (2-9); NEUTROPHILS # (AUTO) 8.34 x10^3/uL (1.8-6.8); NEUTROPHILS % (AUTO) 76 % (42-75)
[2018-09-09] MEDS: LEVOTHYROXINE 88 MCG TABLET PO SCH (06:45)
[2018-09-09] MEDS: PANTOPRAZOLE 40 MG IV IVPush SCH (06:45)
[2018-09-09] MEDS ORDERED: OXYcodone IR 5MG TABLET PO PRN (07:30)
[2018-09-09] MEDS: GABAPENTIN 250 MG/5 ML ORAL SOL PO SCH ×2 (09:59→21:00)
[2018-09-09] MEDS: ONDANSETRON 2MG/ML, 2ML IV PRN ×2 (09:59→19:48)
[2018-09-09] MEDS: SODIUM CHLORIDE FLUSH 10ML SYR IVF SCH ×2 (09:59→21:00)
[2018-09-09] MEDS ORDERED: GABAPENTIN 300 MG CAPSULE ONE (21:05)
[2018-09-09] MEDS: AMOXICILLIN/CLAV 875-125MG TABLET PO SCH (21:15)
[2018-09-10 01:36] VITALS: BP 122/62
[2018-09-10] MEDS: LEVOTHYROXINE 88 MCG TABLET PO SCH (06:20)
[2018-09-10] MEDS: PANTOPRAZOLE 40 MG IV IVPush SCH (06:20)
[2018-09-10 06:22] LABS: BASOPHILS # (AUTO) 0.03 x10^3/uL (0-0.1); BASOPHILS % (AUTO) 0 % (0-1); EOSINOPHILS # (AUTO) 0.65 x10^3/uL (0-0.4); EOSINOPHILS % (AUTO) 8 % (1-7); LYMPHOCYTES # (AUTO) 0.95 x10^3/uL (1-3.4); LYMPHOCYTES % (AUTO) 12 % (22-44); MD NO; MEAN CORPUSCULAR HEMOGLOBIN 28.4 pg (27.5-34.5); MEAN CORPUSCULAR HGB CONC 33.2 g/dL (33.2-36.2); MEAN CORPUSCULAR VOLUME 85.5 fL (81-97); MEAN PLATELET VOLUME 7.4 fL (7.4-10.4); MONOCYTES # (AUTO) 0.57 x10^3/uL (0.2-0.8); MONOCYTES % (AUTO) 7 % (2-9); NEUTROPHILS # (AUTO) 6.05 x10^3/uL (1.8-6.8); NEUTROPHILS % (AUTO) 73 % (42-75); PLATELET COUNT 338 x10^3/uL (130-400); RED BLOOD COUNT 2.86 x10^6/uL (4.38-5.82); RED CELL DISTRIBUTION WIDTH 14.8 % (9.4-14.8)
[2018-09-10 06:32] LABS: ANION GAP 4 mmol/L (5-15); CALCIUM 8.2 mg/dL (8.5-10.1); CHLORIDE 106 mmol/L (98-107)
[2018-09-10 06:33] LABS: CREATININE 0.57 mg/dL (0.7-1.3)
[2018-09-10 08:37] VITALS: BP 105/50
[2018-09-10] MEDS: AMOXICILLIN/CLAV 875-125MG TABLET PO SCH (08:42)
[2018-09-10] MEDS: SODIUM CHLORIDE FLUSH 10ML SYR IVF SCH (08:43)
[2018-09-10] MEDS: GABAPENTIN 250 MG/5 ML ORAL SOL PO SCH (08:47)
[2018-09-10 14:10] VITALS: BP 150/67
== END 2018-09-10 15:16 | disposition home health service (06) | DRG 329 ==
LOC: ORIP 06:05 → 4NOR 10:41 → CCU 08-29 09:24 → ICU 08-29 17:22 → CCU 08-31 12:13 → 4NOR 09-02 13:51 → DCLOUNGE 09-10 14:27
PROVIDERS: ADMIT Surgery; ATTEND Surgery
PROC: 0DTF4ZZ Resection of Right Large Intestine, Percutaneous Endoscopic Approach (ICD-10-PCS; principal; 2018-08-27 07:30)
PROC: 5A1945Z Respiratory Ventilation, 24-96 Consecutive Hours (ICD-10-PCS; 2018-08-29)
PROC: 0BH17EZ Insertion of Endotracheal Airway into Trachea, Via Natural or Artificial Opening (ICD-10-PCS; 2018-08-29)
PROC: 02HV33Z Insertion of Infusion Device into Superior Vena Cava, Percutaneous Approach (ICD-10-PCS; 2018-08-29)
PROC: 0B9M8ZX Drainage of Bilateral Lungs, Via Natural or Artificial Opening Endoscopic, Diagnostic (ICD-10-PCS; 2018-08-29)
PROC: 0B9M8ZX Drainage of Bilateral Lungs, Via Natural or Artificial Opening Endoscopic, Diagnostic (ICD-10-PCS; 2018-08-31)
PROC: 0DH63UZ Insertion of Feeding Device into Stomach, Percutaneous Approach (ICD-10-PCS; 2018-09-07)
PROC: 30233N1 Transfusion of Nonautologous Red Blood Cells into Peripheral Vein, Percutaneous Approach (ICD-10-PCS; 2018-09-09)
DX: C18.2 Malignant neoplasm of ascending colon (principal); A41.9 Sepsis, unspecified organism; J69.0 Pneumonitis due to inhalation of food and vomit; R57.1 Hypovolemic shock; R65.21 Severe sepsis with septic shock; J96.01 Acute respiratory failure with hypoxia; T17.590A Other foreign object in bronchus causing asphyxiation, initial encounter; J44.0 Chronic obstructive pulmonary disease with (acute) lower respiratory infection; E46 Unspecified protein-calorie malnutrition; J90 Pleural effusion, not elsewhere classified; J98.11 Atelectasis; K62.5 Hemorrhage of anus and rectum; D37.4 Neoplasm of uncertain behavior of colon; K21.9 Gastro-esophageal reflux disease without esophagitis; D36.9 Benign neoplasm, unspecified site; D64.9 Anemia, unspecified; Z96.611 Presence of right artificial shoulder joint; T17.990A Other foreign object in respiratory tract, part unspecified in causing asphyxiation, initial encounter; I25.10 Atherosclerotic heart disease of native coronary artery without angina pectoris; I45.10 Unspecified right bundle-branch block; R13.12 Dysphagia, oropharyngeal phase; Z68.20 Body mass index [BMI] 20.0-20.9, adult; Z85.850 Personal history of malignant neoplasm of thyroid; Z82.3 Family history of stroke; Z85.038 Personal history of other malignant neoplasm of large intestine; Z85.828 Personal history of other malignant neoplasm of skin; Z86.010 Personal history of colon polyps; Z87.891 Personal history of nicotine dependence; Z90.49 Acquired absence of other specified parts of digestive tract
CPT/HCPCS: 31624; 36415; 36600; 71045; 71275; 74018; 74230; 80048; 80053; 82533; 82550; 82553; 82803; 82962; 83605; 83615; 83735; 84145; 84478; 84484; 85014; 85018; 85025; 85027; 85610; 85730; 86140; 86850; 86900; 86923; 87015; 87040; 87070; 87077; 87081; 87102; 87116; 87186; 87205; 87206; 88307; 93005; 93306; 94002; 94003; 94640; B4087; G0378; J0295; J0461; J0696; J1100; J1170; J1265; J1644; J1650; J1885; J2020; J2250; J2405; J2543; J2704; J2710; J3010; J3480; J3490; J7608; J7620; P9045; Q9967; C9113; J0330; J2765; J3475; J7030; J7040; J7050; J7120; P9016

== ENCOUNTER 2018-11-30 13:53 | Emergency (ER) | payer MEDICARE, OTHER ==
[~2018-11-30] VITALS: Ht 188 cm; Wt 72.1 kg
--- NOTE | 2018-11-30 14:22 | NUR ---
task RN note: pt presents to ED with c/o pain at site of G tube starting yesterday. pt denies radiating pain, denies n/v. G tube in place, no erythema to surrounding skin. no drainage noted at site. pt states G tube is still functioning properly. pt placed in gown, bp and spo2 monitors in place. report given to ghada Byrd.
--- NOTE | 2018-11-30 14:31 | NUR ---
REPORT RECEIVED FROM TASK RN, ASSUMED CARE OF PT.
--- NOTE | 2018-11-30 14:54 | NUR ---
CT PENDING LABS
[2018-11-30] MEDS ORDERED: SODIUM CHLORIDE FLUSH 10ML SYR IVF ONE (15:00)
[2018-11-30 15:03] LABS: ALANINE AMINOTRANSFERASE 17 U/L (12-78); ALBUMIN 3.2 g/dL (3.4-5.0); ANION GAP 3 mmol/L (5-15); CALCIUM 8.4 mg/dL (8.5-10.1); CHLORIDE 105 mmol/L (98-107); CREATININE 0.69 mg/dL (0.7-1.3)
[2018-11-30 15:05] LABS: ALKALINE PHOSPHATASE 85 U/L (45-117); BILIRUBIN,TOTAL 0.1 mg/dL (0.2-1.0); TOTAL PROTEIN 7.4 g/dL (6.4-8.2)
[2018-11-30 15:14] LABS: MICROSCOPIC NOT IND
[2018-11-30 15:17] LABS: CULTURE INDICATED? NO
[2018-11-30 15:22] LABS: BASOPHILS # (AUTO) 0.04 x10^3/uL (0-0.1); BASOPHILS % (AUTO) 1 % (0-1); EOSINOPHILS # (AUTO) 0.36 x10^3/uL (0-0.4); EOSINOPHILS % (AUTO) 7 % (1-7); LYMPHOCYTES # (AUTO) 0.89 x10^3/uL (1-3.4); LYMPHOCYTES % (AUTO) 18 % (22-44); MD SCAN; MEAN CORPUSCULAR HEMOGLOBIN 28.2 pg (27.5-34.5); MEAN CORPUSCULAR HGB CONC 32.4 g/dL (33.2-36.2); MEAN CORPUSCULAR VOLUME 87.2 fL (81-97); MEAN PLATELET VOLUME 8.9 fL (7.4-10.4); MONOCYTES # (AUTO) 0.42 x10^3/uL (0.2-0.8); MONOCYTES % (AUTO) 9 % (2-9); NEUTROPHILS % (AUTO) 65 % (42-75); PLATELET COUNT 246 x10^3/uL (130-400); RED BLOOD COUNT 3.96 x10^6/uL (4.38-5.82); RED CELL DISTRIBUTION WIDTH 15.6 % (9.4-14.8)
[2018-11-30] MEDS ORDERED: OMNIPAQUE 350 MG/ML, 100ML BOTTLE ONE (15:33)
--- NOTE | 2018-11-30 15:36 | NUR ---
CT Abdomen done. VSS. Pain 0/10. NAD.
[2018-11-30 16:49] VITALS: BP 129/66
--- NOTE | 2018-11-30 16:50 | NUR ---
AVSS, pain free and appears in no acute distress. Seen by ED MD. Discharge orders written.
== END 2018-11-30 17:06 | disposition home or self-care (01) ==
LOC: ED 14:36
DX: R10.32 Left lower quadrant pain (principal); Z85.850 Personal history of malignant neoplasm of thyroid
CPT/HCPCS: 36415; 74177; 80053; 81003; 83690; 85025; 99284; Q9967

== ENCOUNTER → 2018-12-12 | Outpatient (CLI) | payer MEDICARE, OTHER | END | disposition home or self-care (01) | LOC: RAD 11:54 | PROVIDERS: ATTEND Nurse Practitioner Family | DX: R13.10 Dysphagia, unspecified (principal); Z93.1 Gastrostomy status | CPT/HCPCS: 74230 ==

== ENCOUNTER 2019-01-28 13:27 | Outpatient (CLI) | payer MEDICARE, OTHER | END 2019-01-28 23:59 | disposition home or self-care (01) | LOC: CFH 13:27 | PROVIDERS: ATTEND Nurse Practitioner Family | DX: R13.10 Dysphagia, unspecified (principal) ==

== ENCOUNTER 2020-09-06 13:00 | Day surgery (SDC) | payer MEDICARE, OTHER ==
[~2020-09-06] VITALS: Ht 190.5 cm; Wt 79.4 kg
[~2020-09-06 13:00] MED LIST changes: +LEVO125T5 PO; +ONE A DAY MVT PO; -PANT20TA3 PO; +PANT20TA4 PO; +PROBIOTIC PO
[2020-09-06 13:14] VITALS: BP 109/65
[2020-09-06] MEDS ORDERED: CHLORHEXIDINE 15 ML UDC ONE (13:22)
[2020-09-06] MEDS ORDERED: LACTATED RINGERS 1,000 ML IV SCH (13:30)
[2020-09-06] MEDS ORDERED: CHLORHEXIDINE 15 ML UDC MM ONE (13:30)
[2020-09-06] MEDS ORDERED: PROPOFOL 10 MG/ML, 20ML ONE (14:33)
== END 2020-09-06 17:25 | disposition home or self-care (01) ==
LOC: SDC 13:00 → EDSTATUS 15:00 → SDC 17:25
PROVIDERS: ATTEND Internal Medicine
DX: K94.23 Gastrostomy malfunction (principal); Z20.822 Contact with and (suspected) exposure to COVID-19; Z79.890 Hormone replacement therapy; Z79.899 Other long term (current) drug therapy; Z85.850 Personal history of malignant neoplasm of thyroid; Z87.891 Personal history of nicotine dependence
CPT/HCPCS: 43246; 87635; 93005; B4087; J2704; J7120

== ENCOUNTER 2020-12-07 18:06 | Inpatient (IN) | payer MEDICARE, OTHER ==
[~2020-12-07] VITALS: Ht 190.5 cm; Wt 79.9 kg
[2020-12-07] MEDS ORDERED: SODIUM CHLORIDE 0.9% 1,000ML IVBOLUS ONE (18:30)
[2020-12-07] MEDS ORDERED: SODIUM CHLORIDE FLUSH 10ML SYR IVF ONE (18:30)
[2020-12-07 18:46] LABS: EOSINOPHILS % (AUTO) 0 % (1-7); LYMPHOCYTES % (AUTO) 4 % (22-44); MEAN CORPUSCULAR HEMOGLOBIN 30.2 pg (27.5-34.5); MEAN CORPUSCULAR HGB CONC 32.4 g/dL (33.2-36.2); MEAN PLATELET VOLUME 9.1 fL (7.4-10.4); MONOCYTES % (AUTO) 3 % (2-9); NEUTROPHILS % (AUTO) 93 % (42-75); PLATELET COUNT 314 x10^3/uL (130-400); RED BLOOD COUNT 4.47 x10^6/uL (4.38-5.82); RED CELL DISTRIBUTION WIDTH 13.8 % (9.4-14.8)
[2020-12-07 18:47] LABS: BASOPHILS % (AUTO) 0 % (0-1)
[2020-12-07 18:57] LABS: ALANINE AMINOTRANSFERASE 59 U/L (12-78); ALBUMIN 2.4 g/dL (3.4-5.0); ANION GAP 9 mmol/L (5-15); CALCIUM 8.9 mg/dL (8.5-10.1); CHLORIDE 119 mmol/L (98-107)
[2020-12-07] MEDS ORDERED: CEFTRIAXONE 1,000 MG in DEXTROSE 5% 50 ML IVPB ONE (19:00)
[2020-12-07 19:02] LABS: ALKALINE PHOSPHATASE 133 U/L (45-117); BILIRUBIN,TOTAL 0.9 mg/dL (0.2-1.0); TOTAL PROTEIN 7.9 g/dL (6.4-8.2); TROPONIN I < 0.015 ng/mL (0.000-0.045)
[2020-12-07 19:21] LABS: MD SCAN
[2020-12-07] MEDS ORDERED: ONDANSETRON 2MG/ML, 2ML IVPush PRN (20:00)
[2020-12-07] MEDS ORDERED: SODIUM CHLORIDE 0.45% 1,000 ML IV SCH (20:00)
[2020-12-07] MEDS ORDERED: ACETAMINOPHEN 325 MG TABLET PO PRN (20:00)
[2020-12-07] MEDS ORDERED: BISACODYL 10 MG SUPP PR PRN (20:00)
[2020-12-07] MEDS ORDERED: GUAIFENESIN/DM 200-20MG, 10ML UDC PO PRN (20:00)
[2020-12-07] MEDS ORDERED: POLYETHYLENE GLYCOL 17 GM PACKET PO PRN (20:00)
[2020-12-07] MEDS ORDERED: AZITHROMYCIN 500 MG in SODIUM CHLORIDE 0.9% 250 ML IVPB ONE (20:00)
[2020-12-07] MEDS: INSULIN LISPRO 100 UNITS/ML, PEN SQ-INSULIN SCH (22:30)
[2020-12-07] MEDS: HEPARIN 5,000 UNITS/ML, 1ML SQ SCH (22:41)
[2020-12-07 22:46] VITALS: BP 133/84
[2020-12-08 01:26] VITALS: BP 85/51
[2020-12-08] MEDS: DEXTROSE 5% 1,000 ML IV SCH ×3 (01:35→20:50)
[2020-12-08] MEDS ORDERED: VANCOMYCIN PER PHARMACY MC PRN (02:30)
[2020-12-08] MEDS ORDERED: VANCOMYCIN 1,800 MG in SODIUM CHLORIDE 0.9% 250 ML IV ONE (02:30)
[2020-12-08] MEDS ORDERED: LACTATED RINGERS 1,000 ML IVBOLUS ONE (02:30)
[2020-12-08] MEDS ORDERED: PHARMACOKINETIC MONITORING MC PRN (02:30)
[2020-12-08] MEDS ORDERED: PHARMACOKINETIC CONSULTATION MC ONE (02:30)
[2020-12-08 02:41] LABS: MEAN CORPUSCULAR HEMOGLOBIN 30.4 pg (27.5-34.5); MEAN CORPUSCULAR HGB CONC 32.8 g/dL (33.2-36.2); MEAN PLATELET VOLUME 9.1 fL (7.4-10.4); PLATELET COUNT 268 x10^3/uL (130-400); RED BLOOD COUNT 4.23 x10^6/uL (4.38-5.82); RED CELL DISTRIBUTION WIDTH 13.8 % (9.4-14.8)
[2020-12-08 03:07] LABS: MD YES
[2020-12-08 03:10] LABS: <RBC MORPHOLOGY> NORMAL; BANDS%(MANUAL) 12 % (0-7); LYMPHS% (MANUAL) 9 % (22-44); MONOS% (MANUAL) 4 % (2-9); PMNS WITH VACUOLES 1+; SEGS% (MANUAL) 75 % (42-75)
[2020-12-08 03:11] LABS: <PLATELET ESTIMATE> ADEQUATE; <PLT MORPHOLOGY> NORMAL PLT MORPH
[2020-12-08 03:22] LABS: ANION GAP 8 mmol/L (5-15); CALCIUM 8.3 mg/dL (8.5-10.1); CHLORIDE 123 mmol/L (98-107); CREATININE 1.09 mg/dL (0.7-1.3)
[2020-12-08 04:05] VITALS: BP 92/52
[2020-12-08 04:08] LABS: FREE T4 (FREE THYROXINE) 1.03 ng/dL (0.76-1.46)
[2020-12-08] MEDS: PIPERACILLIN/TAZO 4.5 GM in DEXTROSE 5% 100 ML IVPB SCH ×3 (05:58→19:59)
[2020-12-08] MEDS: LEVOTHYROXINE 125 MCG TABLET PO SCH (06:15)
[2020-12-08 06:34] VITALS: BP 92/53
[2020-12-08] MEDS: INSULIN LISPRO 100 UNITS/ML, PEN SQ-INSULIN SCH ×3 (10:39→20:04)
[2020-12-08] MEDS: GABAPENTIN 300 MG CAPSULE PO SCH (10:40)
[2020-12-08] MEDS: SENNA/DOCUSATE TABLET PO SCH (10:40)
[2020-12-08] MEDS: HEPARIN 5,000 UNITS/ML, 1ML SQ SCH ×2 (10:40→18:38)
[2020-12-08] MEDS: MULTIVITAMIN 1 TABLET PO SCH (10:40)
[2020-12-08] MEDS: PANTOPRAZOLE 20MG TABLET PO SCH (10:41)
[2020-12-08] MEDS: LACTOBACILLUS CHEW TABLET PO SCH (10:41)
[2020-12-08 13:29] VITALS: BP 94/55
[2020-12-08] MEDS ORDERED: CEFTRIAXONE 1,000 MG in DEXTROSE 5% 50 ML IVPB SCH (19:30)
[2020-12-08 20:30] LABS: ANION GAP 6 mmol/L (5-15); CHLORIDE 118 mmol/L (98-107)
[2020-12-08 20:31] LABS: CREATININE 0.81 mg/dL (0.7-1.3)
[2020-12-08] MEDS: AZITHROMYCIN 500 MG in SODIUM CHLORIDE 0.9% 250 ML IV SCH (20:49)
[2020-12-08 20:53] VITALS: BP 93/53
[2020-12-09 01:38] VITALS: BP 100/58
[2020-12-09] MEDS: PIPERACILLIN/TAZO 4.5 GM in DEXTROSE 5% 100 ML IVPB SCH ×4 (01:41→20:59)
[2020-12-09] MEDS: HEPARIN 5,000 UNITS/ML, 1ML SQ SCH ×2 (02:50→10:06)
[2020-12-09] MEDS: INSULIN LISPRO 100 UNITS/ML, PEN SQ-INSULIN SCH ×4 (02:55→21:01)
[2020-12-09] MEDS: VANCOMYCIN 1,300 MG in SODIUM CHLORIDE 0.9% 250 ML IV SCH (05:34)
[2020-12-09 05:36] LABS: BASOPHILS % (AUTO) 1 % (0-1); EOSINOPHILS % (AUTO) 0 % (1-7); LYMPHOCYTES % (AUTO) 10 % (22-44); MEAN CORPUSCULAR HEMOGLOBIN 30.2 pg (27.5-34.5); MEAN CORPUSCULAR HGB CONC 32.6 g/dL (33.2-36.2); MEAN PLATELET VOLUME 9.1 fL (7.4-10.4); MONOCYTES % (AUTO) 6 % (2-9); NEUTROPHILS % (AUTO) 83 % (42-75); PLATELET COUNT 241 x10^3/uL (130-400); RED BLOOD COUNT 3.72 x10^6/uL (4.38-5.82); RED CELL DISTRIBUTION WIDTH 13.9 % (9.4-14.8)
[2020-12-09 05:37] LABS: CHLORIDE 117 mmol/L (98-107)
[2020-12-09 05:41] LABS: ANION GAP 4 mmol/L (5-15); CREATININE 0.78 mg/dL (0.7-1.3)
[2020-12-09 05:43] LABS: MD NO
[2020-12-09] MEDS: LEVOTHYROXINE 125 MCG TABLET PO SCH (05:45)
[2020-12-09 07:05] VITALS: BP 94/53
[2020-12-09] MEDS ORDERED: POTASSIUM CHLORIDE 20 MEQ TAB.ER.PRT PO ONE (08:30)
[2020-12-09] MEDS: SENNA/DOCUSATE TABLET PO SCH (09:00)
[2020-12-09] MEDS: MULTIVITAMIN 1 TABLET PO SCH (09:39)
[2020-12-09] MEDS: LACTOBACILLUS CHEW TABLET PO SCH (09:39)
[2020-12-09] MEDS: GABAPENTIN 300 MG CAPSULE PO SCH (09:40)
[2020-12-09] MEDS: PANTOPRAZOLE 20MG TABLET PO SCH (09:40)
[2020-12-09] MEDS: DEXTROSE 5% 1,000 ML IV SCH ×2 (09:55→21:02)
[2020-12-09 12:24] VITALS: BP 104/56
[2020-12-09] MEDS ORDERED: SODIUM PHOSPHATE 10 MMOL in SODIUM CHLORIDE 0.9% 500 ML IV ONE (14:30)
[2020-12-09] MEDS: ENOXAPARIN 80 MG/0.8 ML SQ SCH (16:00)
[2020-12-09 19:42] VITALS: BP 95/55
[2020-12-09] MEDS: AZITHROMYCIN 500 MG in SODIUM CHLORIDE 0.9% 250 ML IV SCH (22:38)
[2020-12-10 03:14] VITALS: BP 102/56
[2020-12-10] MEDS: PIPERACILLIN/TAZO 4.5 GM in DEXTROSE 5% 100 ML IVPB SCH ×4 (03:31→21:23)
[2020-12-10] MEDS: ENOXAPARIN 80 MG/0.8 ML SQ SCH (03:32)
[2020-12-10] MEDS: INSULIN LISPRO 100 UNITS/ML, PEN SQ-INSULIN SCH ×4 (03:33→21:00)
[2020-12-10 04:41] LABS: BASOPHILS % (AUTO) 1 % (0-1); EOSINOPHILS % (AUTO) 2 % (1-7); LYMPHOCYTES % (AUTO) 9 % (22-44); MEAN CORPUSCULAR HEMOGLOBIN 30.2 pg (27.5-34.5); MEAN CORPUSCULAR HGB CONC 32.9 g/dL (33.2-36.2); MEAN PLATELET VOLUME 9.2 fL (7.4-10.4); MONOCYTES % (AUTO) 5 % (2-9); NEUTROPHILS % (AUTO) 83 % (42-75); PLATELET COUNT 236 x10^3/uL (130-400); RED BLOOD COUNT 3.76 x10^6/uL (4.38-5.82); RED CELL DISTRIBUTION WIDTH 13.6 % (9.4-14.8)
[2020-12-10 04:45] LABS: MD NO
[2020-12-10 04:52] LABS: ANION GAP 6 mmol/L (5-15); CALCIUM 7.7 mg/dL (8.5-10.1); CHLORIDE 113 mmol/L (98-107); CREATININE 0.65 mg/dL (0.7-1.3)
[2020-12-10] MEDS: VANCOMYCIN 1,300 MG in SODIUM CHLORIDE 0.9% 250 ML IV SCH (05:09)
[2020-12-10] MEDS: LEVOTHYROXINE 125 MCG TABLET PO SCH (05:09)
[2020-12-10 07:12] VITALS: BP 97/55
[2020-12-10] MEDS: SENNA/DOCUSATE TABLET PO SCH (09:00)
[2020-12-10] MEDS: GABAPENTIN 300 MG CAPSULE PO SCH (09:18)
[2020-12-10] MEDS: LACTOBACILLUS CHEW TABLET PO SCH (09:19)
[2020-12-10] MEDS: PANTOPRAZOLE 20MG TABLET PO SCH (09:19)
[2020-12-10] MEDS: MULTIVITAMIN 1 TABLET PO SCH (09:19)
[2020-12-10] MEDS: DEXTROSE 5% 1,000 ML IV SCH ×2 (09:23→20:15)
[2020-12-10] MEDS ORDERED: OMNIPAQUE 350 MG/ML, 100ML BOTTLE ONE (10:14)
[2020-12-10 12:05] VITALS: BP 96/59
[2020-12-10 20:00] VITALS: BP 111/61
[2020-12-10] MEDS: AZITHROMYCIN 500 MG in SODIUM CHLORIDE 0.9% 250 ML IV SCH (20:15)
[2020-12-11 02:30] VITALS: BP 118/72
[2020-12-11] MEDS: INSULIN LISPRO 100 UNITS/ML, PEN SQ-INSULIN SCH ×4 (03:50→21:00)
[2020-12-11] MEDS: PIPERACILLIN/TAZO 4.5 GM in DEXTROSE 5% 100 ML IVPB SCH ×4 (03:50→20:22)
[2020-12-11 05:55] LABS: CHLORIDE 106 mmol/L (98-107)
[2020-12-11 06:05] LABS: ANION GAP 6 mmol/L (5-15); CALCIUM 7.9 mg/dL (8.5-10.1); CREATININE 0.59 mg/dL (0.7-1.3); VANCOMYCIN,TROUGH 9.6 mcg/mL (5.0-10.0)
[2020-12-11] MEDS: PANTOPRAZOLE 20MG TABLET PO SCH (06:40)
[2020-12-11] MEDS: LEVOTHYROXINE 125 MCG TABLET PO SCH (06:40)
[2020-12-11] MEDS: VANCOMYCIN 1,300 MG in SODIUM CHLORIDE 0.9% 250 ML IV SCH (06:40)
[2020-12-11 08:59] VITALS: BP 112/66
[2020-12-11] MEDS: LACTOBACILLUS CHEW TABLET PO SCH (09:00)
[2020-12-11] MEDS: SENNA/DOCUSATE TABLET PO SCH (09:00)
[2020-12-11] MEDS: MULTIVITAMIN 1 TABLET PO SCH (09:00)
[2020-12-11] MEDS: GABAPENTIN 300 MG CAPSULE PO SCH (09:00)
[2020-12-11] MEDS: DEXTROSE 5% 1,000 ML IV SCH (09:01)
[2020-12-11 13:42] VITALS: BP 98/61
[2020-12-11 19:50] VITALS: BP 97/55
[2020-12-11] MEDS ORDERED: AZITHROMYCIN 500 MG TABLET PO SCH (20:00)
[2020-12-11] MEDS ORDERED: AZITHROMYCIN 500 MG in SODIUM CHLORIDE 0.9% 250 ML IV ONE (20:30)
[2020-12-12] MEDS ORDERED: VANCOMYCIN 1,300 MG in SODIUM CHLORIDE 0.9% 250 ML IV SCH
[2020-12-12 01:18] VITALS: BP 113/62
[2020-12-12] MEDS: INSULIN LISPRO 100 UNITS/ML, PEN SQ-INSULIN SCH ×4 (03:00→21:00)
[2020-12-12] MEDS: PIPERACILLIN/TAZO 4.5 GM in DEXTROSE 5% 100 ML IVPB SCH ×4 (03:13→21:04)
[2020-12-12 05:11] LABS: BASOPHILS % (AUTO) 0 % (0-1); EOSINOPHILS % (AUTO) 4 % (1-7); LYMPHOCYTES % (AUTO) 5 % (22-44); MD NO; MEAN CORPUSCULAR HEMOGLOBIN 30.2 pg (27.5-34.5); MEAN CORPUSCULAR HGB CONC 33.5 g/dL (33.2-36.2); MEAN PLATELET VOLUME 9.1 fL (7.4-10.4); MONOCYTES % (AUTO) 4 % (2-9); NEUTROPHILS % (AUTO) 87 % (42-75); PLATELET COUNT 271 x10^3/uL (130-400); RED BLOOD COUNT 4.02 x10^6/uL (4.38-5.82); RED CELL DISTRIBUTION WIDTH 13.3 % (9.4-14.8)
[2020-12-12 05:24] LABS: ANION GAP 5 mmol/L (5-15); CALCIUM 8.2 mg/dL (8.5-10.1); CHLORIDE 106 mmol/L (98-107)
[2020-12-12] MEDS: LEVOTHYROXINE 125 MCG TABLET PO SCH (05:58)
[2020-12-12] MEDS: PANTOPRAZOLE 20MG TABLET PO SCH (05:58)
[2020-12-12 07:59] VITALS: BP 123/74
[2020-12-12] MEDS: SENNA/DOCUSATE TABLET PO SCH (09:33)
[2020-12-12] MEDS: GABAPENTIN 300 MG CAPSULE PO SCH (09:34)
[2020-12-12] MEDS: MULTIVITAMIN 1 TABLET PO SCH (09:34)
[2020-12-12] MEDS: LACTOBACILLUS CHEW TABLET PO SCH (09:34)
[2020-12-12] MEDS: ENOXAPARIN 40 MG/0.4 ML SQ SCH (12:47)
[2020-12-12 13:22] VITALS: BP 95/57
[2020-12-12] MEDS ORDERED: VANCOMYCIN 1,600 MG in SODIUM CHLORIDE 0.9% 250 ML IV SCH (17:00)
[2020-12-12 19:06] VITALS: BP 91/54
[2020-12-13 00:51] VITALS: BP 94/53
[2020-12-13] MEDS: INSULIN LISPRO 100 UNITS/ML, PEN SQ-INSULIN SCH ×3 (03:00→15:00)
[2020-12-13] MEDS: PIPERACILLIN/TAZO 4.5 GM in DEXTROSE 5% 100 ML IVPB SCH ×3 (03:14→15:00)
[2020-12-13] MEDS: LEVOTHYROXINE 125 MCG TABLET PO SCH (06:14)
[2020-12-13] MEDS: PANTOPRAZOLE 20MG TABLET PO SCH (06:14)
[2020-12-13 06:38] VITALS: BP 99/61
[2020-12-13 08:42] LABS: BASOPHILS % (AUTO) 1 % (0-1); EOSINOPHILS % (AUTO) 4 % (1-7); LYMPHOCYTES % (AUTO) 7 % (22-44); MEAN CORPUSCULAR HGB CONC 32.7 g/dL (33.2-36.2); MEAN PLATELET VOLUME 8.8 fL (7.4-10.4); MONOCYTES % (AUTO) 4 % (2-9); NEUTROPHILS % (AUTO) 84 % (42-75); PLATELET COUNT 313 x10^3/uL (130-400); RED BLOOD COUNT 3.77 x10^6/uL (4.38-5.82); RED CELL DISTRIBUTION WIDTH 13.6 % (9.4-14.8)
[2020-12-13 08:45] LABS: MD NO
[2020-12-13 08:52] LABS: ANION GAP 4 mmol/L (5-15); CALCIUM 8.6 mg/dL (8.5-10.1); CHLORIDE 103 mmol/L (98-107); CREATININE 0.74 mg/dL (0.7-1.3)
[2020-12-13] MEDS: SENNA/DOCUSATE TABLET PO SCH (09:00)
[2020-12-13] MEDS: MULTIVITAMIN 1 TABLET PO SCH (09:08)
[2020-12-13] MEDS: LACTOBACILLUS CHEW TABLET PO SCH (09:08)
[2020-12-13] MEDS: GABAPENTIN 300 MG CAPSULE PO SCH (09:08)
[2020-12-13] MEDS: ENOXAPARIN 40 MG/0.4 ML SQ SCH (13:00)
[2020-12-13] MEDS ORDERED: AMOX1TAB64 PO (13:02)
[2020-12-13] MEDS ORDERED: ACID1TAB3 PO (13:02)
[2020-12-13 13:16] VITALS: BP 95/56
== END 2020-12-13 15:55 | disposition home or self-care (01) | DRG 871 ==
LOC: ED 18:46 → EDIP 19:12 → 4EST 21:10 → DCLOUNGE 12-13 15:50
PROVIDERS: ADMIT Family Medicine; ATTEND Internal Medicine
PROC: 5A0935A Assistance with Respiratory Ventilation, Less than 24 Consecutive Hours, High Flow/Velocity Cannula (ICD-10-PCS; principal; 2020-12-08)
DX: A41.9 Sepsis, unspecified organism (principal); J96.01 Acute respiratory failure with hypoxia; J15.9 Unspecified bacterial pneumonia; E87.0 Hyperosmolality and hypernatremia; E87.1 Hypo-osmolality and hyponatremia; B96.1 Klebsiella pneumoniae [K. pneumoniae] as the cause of diseases classified elsewhere; J43.9 Emphysema, unspecified; Z20.822 Contact with and (suspected) exposure to COVID-19; B96.20 Unspecified Escherichia coli [E. coli] as the cause of diseases classified elsewhere; B95.1 Streptococcus, group B, as the cause of diseases classified elsewhere; Z85.828 Personal history of other malignant neoplasm of skin; Z85.850 Personal history of malignant neoplasm of thyroid; Z87.01 Personal history of pneumonia (recurrent)
CPT/HCPCS: 36415; 36600; 71045; 71275; 80048; 80053; 80202; 82803; 82962; 83036; 83605; 83735; 83880; 84100; 84145; 84295; 84439; 84443; 84481; 84484; 85025; 85379; 87040; 87070; 87077; 87081; 87147; 87186; 87205; 87635; 93005; 93306; G0378; J0456; J0696; J1644; J1650; J2543; J3370; J7070; Q9967; J1815; J7030; J7040; J7050; J7120